=== PATIENT | female | born 1965 | race Hispanic/Latino ===

== ENCOUNTER 2019-07-08 11:06 | Inpatient (IN) | payer OTHER ==
[~2019-07-08] VITALS: Ht 154.9 cm; Wt 78.9 kg
[~2019-07-08 11:06] MED LIST: AMLODIPINE BESY10 MG PO; ASPIR 8181 MG; PEPCID20 MG PO
--- OUTSIDE RECORDS SUMMARY | 2019-07-08 11:09 | XMS REPORT ---
Author Author Tom Mccoy Organization [employer] Address Unknown Phone Unavailable Care Team Providers Care Temperer Name Role Phone Tom Mccoy CP Unavailable Allergies No Known Allergies Problems Problem Type Condition Code Onset Dates Condition Status Problem Urge incontinence N39.41 Active Problem HTN (hypertension) I10 Active Problem Vitamin D deficiency E55.9 Active Assessment Urinary tract infection, site unspecified N39.0 Active Problem HLD (hyperlipidemia) E78.5 Active Problem Hx of breast cancer Z85.3 Active Medications No Known Medications Results No Known Results Summary Purpose [employer] Submission
--- OUTSIDE RECORDS SUMMARY | 2019-07-08 11:09 | XMS REPORT ---
Author Author Tom Mccoy Organization [employer] Address Unknown Phone Unavailable Care Team Providers Care Potable Water Treatment Operator Name Role Phone Tom Mccoy CP Unavailable Allergies No Known Allergies Problems Problem Type Condition Code Onset Dates Condition Status Problem Urge incontinence N39.41 Active Problem HTN (hypertension) I10 Active Problem Vitamin D deficiency E55.9 Active Problem HLD (hyperlipidemia) E78.5 Active Problem Hx of breast cancer Z85.3 Active Medications Medication Code System Code Instructions Start Date End Date Status Dosage Metformin HCl [facility] [address]-01 500 MG Orally Twice a day March 02, 2017 Active 1 tablet with meals Results No Known Results Summary Purpose [employer] Submission
--- OUTSIDE RECORDS SUMMARY | 2019-07-08 11:09 | XMS REPORT ---
Author Author Tom Mccoy Organization [employer] Address Unknown Phone Unavailable Care Team Providers Care Counter Sales Representative Name Role Phone Tom Mccoy CP Unavailable Allergies No Known Allergies Problems Problem Type Condition Code Onset Dates Condition Status Problem Urge incontinence N39.41 Active Problem HTN (hypertension) I10 Active Problem Vitamin D deficiency E55.9 Active Problem HLD (hyperlipidemia) E78.5 Active Problem Hx of breast cancer Z85.3 Active Medications Medication Code System Code Instructions Start Date End Date Status Dosage GlipiZIDE [facility] [address]-91 5 MG Orally twice a day (bid) February 25, 2017 Active 1 tablet Oxybutynin Chloride ER [facility] [address]-74 10 MG Orally Once a day February 25, 2017 Jun 25, 2017 Active 1 tablet Results No Known Results Summary Purpose [employer] Submission
--- OUTSIDE RECORDS SUMMARY | 2019-07-08 11:09 | XMS REPORT ---
Author Author Tom Mccoy Organization [employer] Address Unknown Phone Unavailable Care Team Providers Care Boring Machine Feeder Name Role Phone Tom Mccoy CP Unavailable Allergies, Adverse Reactions, Alerts Substance Reaction Event Type Bactrim Info Not Available Drug Allergy Problems Problem Type Condition Code Onset Dates Condition Status Assessment HTN (hypertension) I10 Active Assessment Vitamin D deficiency E55.9 Active Assessment Familial hypercholesterolemia E78.01 Active Assessment Urge incontinence N39.41 Active Problem Urge incontinence N39.41 Active Problem HTN (hypertension) I10 Active Problem Vitamin D deficiency E55.9 Active Assessment Frequent urination R35.0 Active Assessment Fatigue, unspecified type R53.83 Active Problem HLD (hyperlipidemia) E78.5 Active Problem Hx of breast cancer Z85.3 Active Medications Medication Code System Code Instructions Start Date End Date Status Dosage Amlodipine Besylate [facility] 71613338226 10 Active TAKE 1 TABLET BY MOUTH DAILY Ergocalciferol [facility] [address]-27 97452 UNIT Orally Once a week February 16, 2017 February 11, 2018 Active 1 capsule VESIcare [facility] [address]-24 5 MG Orally Once a day February 16, 2017 April 17, 2017 Active 1 tablet Norvasc [facility] [address]-42 10 MG Orally Once a day Active 1 tablet Zetia [facility] [address]-93 10 MG Orally Once a day February 16, 2017 Active 1 tablet Vital Signs Date/Time: February 16, 2017 BMI 33.66 Index Weight 177 lbs Height 60.8 in Temperature 98.2 F Cardiac Monitoring Heart Rate 84 /min Blood Pressure Diastolic 79 mm Hg Blood Pressure Systolic 141 mm Hg Results No Known Results Summary Purpose [employer] Submission
--- OUTSIDE RECORDS SUMMARY | 2019-07-08 11:09 | XMS REPORT ---
Author Author Azar Santamaria Organization [employer] Address Unknown Phone Unavailable Care Team Providers Care Gasoline Pump Installer Name Role Phone Azar Santamaria CP Unavailable Allergies No Known Allergies Problems Problem Type Condition Code Onset Dates Condition Status Problem Obesity E66.9 Active Problem Low back pain M54.5 Active Problem Hyperlipidemia E78.5 Active Problem Prediabetes R73.09 Active Problem Type 2 diabetes mellitus without complication, unspecified correction insulin use status E11.9 Active Problem Essential hypertension I10 Active Problem History of breast cancer Z85.3 Active Problem Vitamin D deficiency E55.9 Active Problem Surgical menopause N95.8 Active Medications Medication Code System Code Instructions Start Date End Date Status Dosage Amlodipine Besylate [facility] [address]-35 10.0 Milligram by mouth daily Active 1 tablet Results No Known Results Summary Purpose [employer] Submission
--- OUTSIDE RECORDS SUMMARY | 2019-07-08 11:09 | XMS REPORT ---
Author Author Tom Mccoy Organization [employer] Address Unknown Phone Unavailable Care Team Providers Care Group Therapy Counselor Name Role Phone Tom Mccoy CP Unavailable Allergies No Known Allergies Problems Problem Type Condition Code Onset Dates Condition Status Problem Urge incontinence N39.41 Active Problem HTN (hypertension) I10 Active Problem Vitamin D deficiency E55.9 Active Problem HLD (hyperlipidemia) E78.5 Active Problem Hx of breast cancer Z85.3 Active Medications Medication Code System Code Instructions Start Date End Date Status Dosage Oxybutynin Chloride ER [facility] [address]-67 10 MG Orally Once a day February 25, 2017 Jun 25, 2017 Active 1 tablet GlipiZIDE [facility] [address]-72 5 MG Orally twice a day (bid) February 25, 2017 Active 1 tablet Results No Known Results Summary Purpose [employer] Submission
--- OUTSIDE RECORDS SUMMARY | 2019-07-08 11:09 | XMS REPORT ---
Author Author Tom Mccoy Organization [employer] Address Unknown Phone Unavailable Care Team Providers Care Conveyor Maintenance Mechanic Name Role Phone Tom Mccoy CP Unavailable Encounters Encounter Location Date Unknown [facility] Sep 10, 2016 Problems Problem Type Condition ICD-9 Code Onset Dates Condition Status Problem HLD (hyperlipidemia) E78.5 Active Problem Hx of breast cancer Z85.3 Active Problem HTN (hypertension) I10 Active Medications Medication Code System Code Instructions Start Date End Date Status Dosage Ergocalciferol [facility] [address]-75 49352 UNIT Orally Once a week Sep 10, 2016 Oct 04, 2016 Active 1 capsule Co Q-10 [facility] 37348-[address]25 100 MG Orally Once a day Sep 10, 2016 Dec 09, 2016 Active 1 capsule with a meal Social History Social History Element Qualifiers Date Reported Tobacco Use: . Are you a: never smoker Jun 23, 2016 Use of recreational / street drugs? . Answer: No Jun 23, 2016 Marital Status: . Jun 23, 2016 Caffeine intake? . Status: Yes, What type: Coffee, Chocolate Jun 23, 2016 Do you exercise? . Answer: No Jun 23, 2016 Do you drink alcohol? . Status: Yes, Type: Liquor, How Often? Socially Jun 23, 2016 Travel outside [place]: . yes Jun 23, 2016 Occupation: . Employed. [employer] Jun 23, 2016 Summary Purpose [employer] Submission
--- OUTSIDE RECORDS SUMMARY | 2019-07-08 11:09 | XMS REPORT ---
Author Author Tom Mccoy Organization [employer] Address Unknown Phone Unavailable Care Team Providers Care Instantizer Operator Name Role Phone Tom Mccoy CP [...]
--- OUTSIDE RECORDS SUMMARY | 2019-07-08 11:09 | XMS REPORT | Continuity of Care Document ---
Author Author Klash Address Unknown Phone Unavailable Care Team Providers Care Informatica Mdm Architect Name Role Phone [email or web address] Information Exchange Unavailable Unavailable Problems Problem Status Onset Date Classification Date Reported Comments Source Urge incontinence Active Diagnosis 03/18/2017 [id number] HTN (hypertension) Active Diagnosis 03/18/2017 [id number] HLD (hyperlipidemia) Active Problem 03/18/2017 [id number] Hx of breast cancer Active Problem 03/18/2017 [id number] Urinary tract infection, site unspecified Active Diagnosis 03/03/2017 [id number] Frequent urination Active Diagnosis 03/18/2017 [id number] Fatigue, unspecified type Active Diagnosis 03/18/2017 [id number] Obesity Active Problem 02/16/2019 [facility] Low back pain Active Problem 02/16/2019 [facility] Hyperlipidemia Active Problem 02/16/2019 [facility] Prediabetes Active Problem 09/02/2018 [facility] Type 2 diabetes mellitus without complication, unspecified 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 insulin 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 Active Problem 02/16/2019 [facility] Essential hypertension Active Problem 02/16/2019 [facility] History of breast cancer Active Problem 02/16/2019 [facility] Vitamin D deficiency Active Diagnosis 02/16/2019 [facility],[id number] Surgical menopause Active Problem 02/16/2019 [facility] Cough Active Diagnosis 03/30/2017 [facility] Dysuria Active Diagnosis 03/30/2017 [facility] Pain of left calf Active Diagnosis 04/21/2017 [facility] Flu-like symptoms Active Diagnosis 09/07/2017 [facility] Acute cystitis with hematuria Active Diagnosis 02/09/2018 [facility] Morbid obesity Active Problem 02/16/2019 [facility] Gastroesophageal reflux disease without esophagitis Active Problem 02/16/2019 [facility] Encounter for routine history and physical examination of adult Active Diagnosis 02/16/2019 [facility] Statin intolerance Active Problem 02/16/2019 [facility] Intractable migraine with aura with status migrainosus Active Problem 02/16/2019 [facility] Family history of premature CAD Active Problem 02/16/2019 [facility] Type 2 diabetes mellitus without complication, without long-term current use of insulin Active Problem 02/16/2019 [facility] Familial hypercholesterolemia Active Problem 02/16/2019 [facility],[id number] Anxiety Active Problem 02/16/2019 [facility] Peripheral vascular disease, unspecified Active Problem 02/16/2019 [facility] Skin rash Active Diagnosis 02/16/2019 [facility] Elevated LFTs Active Diagnosis 12/12/2018 [facility] UTI (lower urinary tract infection) Active Diagnosis 08/28/2018 [facility] Routine general medical examination at a health care facility Active Diagnosis 08/28/2018 [facility] Myalgia Active Diagnosis 11/23/2018 [facility] LFT elevation Active Diagnosis 11/23/2018 [facility] Other chest pain Active Diagnosis 11/23/2018 [facility] Obesity Active Diagnosis 05/01/2014 [facility] Hypertension Active Problem 05/01/2014 [facility] History of breast cancer Active Problem 05/01/2014 [facility] Impaired fasting glucose Active Problem 05/01/2014 [facility] Elevated liver enzymes Active Diagnosis 05/01/2014 [facility] Arm numbness Active Diagnosis 05/01/2014 [facility] Chest discomfort Active Diagnosis 05/01/2014 [facility] Cough Active Diagnosis 07/14/2013 [facility] Elevated liver enzymes Active Diagnosis 07/14/2013 [facility] Chest discomfort Active Diagnosis 12/22/2018 [facility] Chest pain Active Diagnosis 03/10/2016 [facility] Fatigue Active Diagnosis 02/17/2016 [facility] History of strep sore throat Active Diagnosis 02/17/2016 [facility] Medications Medication Details Route Status Patient Instructions Ordering Provider Order Date Source Triamcinolone Acetonide 1 application to affected area Externally Active 0.1 % Externally Twice a day [facility] 01/29/2019 [facility] Farxiga one tablet by mouth Active 5 mg by mouth daily [facility] 01/29/2019 [facility] FreeStyle Aldo [place] as directed in vitro Active - in vitro use qd, DX: E11.9 [facility] 12/11/2018 [facility] FreeStyle Aldo 14 day Sensor System as directed in vitro (DX: 11.9) Active sensor in vitro (DX: 11.9) use daily change sensor every 14 days [facility] 12/11/2018 [facility] Glyxambi 1 tablet in the morning Orally Active 25-5 MG Orally Once a day [facility] 12/07/2018 [facility] Citalopram Hydrobromide 1 tablet Orally Active 10 mg Orally Once a day [facility] 10/31/2018 [facility] Repatha SureClick 1 ml Subcutaneous Active 140 MG/ML Subcutaneous every 2 weeks [facility] 10/31/2018 [facility] Metformin HCl 1 tablet with a meal Orally Active 500 mg Orally twice a day (bid) [facility] 09/01/2018 [facility] Ergocalciferol 1 capsule Orally Active 98959 UNIT Orally once per week [facility] 09/01/2018 [facility] Cipro 1 tablet Orally Active 500 mg Orally twice a day (bid) [place] 02/07/2018 [facility] Nexium 1 capsule Orally Active 40 MG Orally Once a day [facility] 10/01/2017 [facility] Magnesium 1 tablet with a meal Orally Active 250 MG Orally Once a day [place] 10/01/2017 [facility] Hydrochlorothiazide 1 tablet in the morning Orally Active 12.5 MG Orally pm [place] 10/01/2017 [facility] K-Tab 1 tablet with food Orally Active 20 MEQ Orally Once a day [place] 10/01/2017 [facility] Aspirin 1 tablet Orally Active 81 MG Orally Once a day [place] 10/01/2017 [facility] Aspirin 1 tablet Orally Active 81 MG Orally Every other day [facility] 10/01/2017 [facility] Aspirin 1 tablet Orally Active 81 MG Orally Every other day [facility] 10/01/2017 [facility] Tamiflu 1 capsule Orally Active 75 mg Orally Twice a day [place] 09/06/2017 [facility] Bromfed DM 10 ml as needed Orally Active 30-2-10 MG/5ML Orally every 6 hrs PRN [place] 09/06/2017 [facility] Amoxicillin 1 tablet Orally Active 500 MG Orally every 12 hrs [facility] 03/28/2017 [facility] Metformin HCl 1 tablet with meals Orally Active 500 MG Orally Twice a day [facility] 03/02/2017 2.16.840.1.686969.4.391.11.88631 Oxybutynin Chloride ER 1 tablet Orally Active 10 MG Orally Once a day [facility] 02/25/2017 2.16.840.1.177129.4.391.11.07246 GlipiZIDE 1 tablet Orally Active 5 MG Orally twice a day (bid) [facility] 02/25/2017 2.16.840.1.683832.4.391.11.63969 Ergocalciferol 1 capsule Orally Active 24481 UNIT Orally Once a week [facility] 02/16/2017 2.16.840.1.523910.4.391.11.46106 VESIcare 1 tablet Orally Active 5 MG Orally Once a day [facility] 02/16/2017 2.16840.1.761191.4.391..30270 Zetia 1 tablet Orally Active 10 MG Orally Once a day [facility] 02/16/2017 2.16.840.1.414795.4.391..02904 Ergocalciferol 1 capsule Orally Active 45125 UNIT Orally Once a week [facility] 09/10/2016 2.16.840.1.466132.4.391..21683 Co Q-10 1 capsule with a meal Orally Active 100 MG Orally Once a day [facility] 09/10/2016 2.16.840.1.268458.4.391..05806 Amoxicillin 1 tablet Orally Active 500 mg Orally three times a day (tid) [facility] 03/03/2016 [facility] MetFORMIN HCl ER 1 tablet with evening meal Orally Active 750 MG Orally Once a day [place] 02/13/2016 [facility] Pravastatin Sodium 1 tablet Orally Active 40 mg Orally Once a day [facility] 02/13/2016 [facility] Vitamin D (Ergocalciferol) 1 capsule Orally Active 66527 UNIT Orally once per week [place] 02/13/2016 [facility] Ergocalciferol 1 capsule Orally Active 28450 UNIT Orally once per week [place] 10/09/2015 [facility] Imitrex 1 tablet as needed one time; can repeat in 2 hrs if headache persists Orally Active 50 mg Orally Once a day [place] 01/24/2015 [facility] Imitrex 1 tablet as needed one time; can repeat in 2 hrs if headache persists Orally Active 50 mg Orally Once a day [place] 01/24/2015 [facility] Tessalon 1 capsule as needed Orally Active 200 MG Orally Three times a day PRN [place] 07/10/2013 [facility] Amlodipine Besylate TAKE 1 TABLET BY MOUTH DAILY NA Active 10 [place] [id number] Norvasc 1 tablet Orally Active 10 MG Orally Once a day [facility] [id number]..11585 Amlodipine Besylate 1 tablet by mouth Active 10.0 Milligram by mouth daily [place] [facility] Tamoxifen Citrate 1 tablet Orally Active 20 mg Orally once a day [facility] Vitamin D (Ergocalciferol) 1 capsule Orally Active 03909 UNIT Orally once a week [facility] Vitamin D (Ergocalciferol) 1 capsule Orally Active 48667 UNIT Orally once a week [place] [facility] Amlodipine Besylate 1 tablet by mouth Active 10.0 Milligram by mouth daily [place] [facility] Valsartan-Hydrochlorothiazide TK 1 T PO QD Oral Active 160-12.5 MG Oral [place] [facility] Cipro 1 tablet Orally Active 500 mg Orally every 12 hrs [place] [facility] Amoxicillin 1 tablet Orally Active 875 MG Orally Twice a day [place] [facility] Amlodipine Besylate 1 tablet by mouth Active 10.0 Milligram by mouth daily [place] [facility] Doxycycline Monohydrate 1 capsule Orally Active 100 mg Orally Once a day [place] [facility] Allergies, Adverse Reactions, Alerts Substance Category Reaction Severity Reaction type Status Date Reported Comments Source Bactrim Adverse Reaction hives Adverse Reaction Active 01/29/2019 [facility] Lipitor Adverse Reaction muscle aches Adverse Reaction Active 01/29/2019 [facility] pravastatin Adverse Reaction dizziness and leg cramps Adverse Reaction Active 01/29/2019 [facility] metformin Adverse Reaction leg cramps Adverse Reaction Active 01/29/2019 [facility] Immunizations No Data Provided for This Section Results No Data Provided for This Section Pathology Reports No Data Provided for This Section Diagnostic Reports No Data Provided for This Section Consultation Notes No Data Provided for This Section Discharge Summaries No Data Provided for This Section History and Physicals No Data Provided for This Section Vital Signs Vital Sign Value Date Comments Source Weight 174 01/29/2019 [facility] Height 60.5 01/29/2019 [facility] Heart Rate 76 01/29/2019 [facility] Diastolic (mm Hg) 90 01/29/2019 [facility] Systolic (mm Hg) 130 01/29/2019 [facility] Weight 171 12/07/2018 [facility] Height 60.5 12/07/2018 [facility] Heart Rate 80 12/07/2018 [facility] Diastolic (mm Hg) 78 12/07/2018 [facility] Systolic (mm Hg) 132 12/07/2018 [facility] Weight 169 10/31/2018 [facility] Height 60.5 10/31/2018 [facility] Heart Rate 76 10/31/2018 [facility] Diastolic (mm Hg) 82 10/31/2018 [facility] Systolic (mm Hg) 128 10/31/2018 [facility] Weight 177 08/26/2018 [facility] Height 60.5 08/26/2018 [facility] Temperature Oral (F) 98.3 F 08/26/2018 [facility] Heart Rate 82 08/26/2018 [facility] Diastolic (mm Hg) 80 08/26/2018 [facility] Systolic (mm Hg) 130 08/26/2018 [facility] Weight 172 02/07/2018 [facility] Height 60.5 02/07/2018 [facility] Heart Rate 85 02/07/2018 [facility] Diastolic (mm Hg) 80 02/07/2018 [facility] Systolic (mm Hg) 130 02/07/2018 [facility] Weight 170 09/06/2017 [facility] Height 60.5 09/06/2017 [facility] Temperature Oral (F) 98.0 F 09/06/2017 [facility] Heart Rate 78 09/06/2017 [facility] Diastolic (mm Hg) 74 09/06/2017 [facility] Systolic (mm Hg) 130 09/06/2017 [facility] Weight 173 03/28/2017 [facility] Height 60.5 03/28/2017 [facility] Heart Rate 88 03/28/2017 [facility] Diastolic (mm Hg) 84 03/28/2017 [facility] Systolic (mm Hg) 150 03/28/2017 [facility] Weight 177 02/16/2017 2.16.840.1.493433.4.391.11.25015 Height 60.8 02/16/2017 2.16.840.1.724978.4.391.11.16791 Temperature Oral (F) 98.2 F 02/16/2017 2.16.840.1.351129.4.391.11.11898 Heart Rate 84 02/16/2017 2.16.840.1.943537.4.391.11.61169 Diastolic (mm Hg) 79 02/16/2017 2.16.840.1.520871.4.391.11.78790 Systolic (mm Hg) 141 02/16/2017 2.16.840.1.847218.4.391.11.12833 Weight 169 02/13/2016 [facility] Height 60.5 02/13/2016 [facility] Heart Rate 80 02/13/2016 [facility] Diastolic (mm Hg) 70 02/13/2016 [facility] Systolic (mm Hg) 118 02/13/2016 [facility] Weight 171 04/17/2014 [facility] Height 60.5 04/17/2014 [facility] Temperature Oral (F) 98.8 F 04/17/2014 [facility] Heart Rate 76 04/17/2014 [facility] Diastolic (mm Hg) 90 04/17/2014 [facility] Systolic (mm Hg) 140 04/17/2014 [facility] Weight 166 07/10/2013 [facility] Height 60.5 07/10/2013 [facility] Heart Rate 96 07/10/2013 [facility] Diastolic (mm Hg) 96 07/10/2013 [facility] Systolic (mm Hg) 148 07/10/2013 [facility] Encounters Location Location Details Encounter Type Encounter Number Reason For Visit Attending Provider ADM Date DC Date Status Source [facility] RESULTS [id number] 07/10/2013 07/10/2013 [facility] RESULTS [id number] 07/10/2013 07/10/2013 [facility] RESULTS [id number] 07/10/2013 07/10/2013 [facility] RESULTS [id number] 07/10/2013 07/10/2013 [facility] RESULTS [id number] 07/10/2013 07/10/2013 [facility] RESULTS [id number] 07/10/2013 07/10/2013 [facility] RESULTS [id number] 07/10/2013 07/10/2013 [facility] RESULTS [id number] 07/10/2013 07/10/2013 [facility] pain on rt side [id number] 04/17/2014 04/17/2014 [facility] pain on rt side [id number] 04/17/2014 04/17/2014 [facility] pain on rt side [id number] 04/17/2014 04/17/2014 [facility] pain on rt side [id number] 04/17/2014 04/17/2014 [facility] pain on rt side [id number] 04/17/2014 04/17/2014 [facility] pain on rt side [id number] 04/17/2014 04/17/2014 [facility] pain on rt side [id number] 04/17/2014 04/17/2014 [facility] [id number] 04/19/2014 04/19/2014 [facility] [id number] 04/19/2014 04/19/2014 [facility] [id number] 04/19/2014 04/19/2014 [facility] [id number] 04/19/2014 04/19/2014 [facility] [id number] 04/19/2014 04/19/2014 [facility] [id number] 04/19/2014 04/19/2014 [facility] [id number] 04/19/2014 04/19/2014 [facility] ER FOLLOW UP [id number] 01/24/2015 01/24/2015 [facility] ER FOLLOW UP [id number] 01/24/2015 01/24/2015 [facility] ER FOLLOW UP [id number] 01/24/2015 01/24/2015 [facility] ER FOLLOW UP [id number] 01/24/2015 01/24/2015 [facility] ER FOLLOW UP [id number] 01/24/2015 01/24/2015 [facility] PHYSICAL [id number] 09/05/2015 09/05/2015 [facility] PHYSICAL [id number] 09/05/2015 09/05/2015 [facility] PHYSICAL [id number] 09/05/2015 09/05/2015 [facility] [facility] PHYSICAL [id number] 09/05/2015 09/05/2015 [facility] PHYSICAL [id number] 09/05/2015 09/05/2015 [facility] Unknown [id number] 10/09/2015 10/09/2015 [facility] Unknown [id number] 10/09/2015 10/09/2015 [facility] Unknown [id number] 10/09/2015 10/09/2015 [facility] Unknown [id number] 10/09/2015 10/09/2015 [facility] Unknown [id number] 10/09/2015 10/09/2015 [facility] 6 MONTH FOLLOW UP [id number] 02/13/2016 02/13/2016 [facility] 6 MONTH FOLLOW UP [id number] 02/13/2016 02/13/2016 [facility] 6 MONTH FOLLOW UP [id number] 02/13/2016 02/13/2016 [facility] 6 MONTH FOLLOW UP [id number] 02/13/2016 02/13/2016 [facility] Unknown [id number] 03/03/2016 03/03/2016 [facility] Unknown [id number] 03/03/2016 03/03/2016 [facility] [place] [id number] 03/05/2016 03/05/2016 [facility] [place] [id number] 03/05/2016 03/05/2016 [facility] [place] [id number] 03/05/2016 03/05/2016 [facility] Results [id number] 04/28/2016 04/28/2016 [facility] [id number] 09/10/2016 09/10/2016 [id number] Procedures No Data Provided for This Section Assessment and Plan No Data Provided for This Section Plan of Care No Data Provided for This Section Social History Social History Date Source Social History ElementQualifiersDate Reported Tobacco Use: . 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 negative February 13, 2016 Flu Vaccine: . 2015 February 13, 2016 children . Judah and Velma February 13, 2016 Tobacco Use: . Are you a: never smoker February 13, 2016 Marital Status: . Thiago Dietz February 13, 2016 Caffeine intake? . Status: Yes February 13, 2016 Do you exercise? . Answer: Yes February 13, 2016 Do you drink alcohol? . Status: Yes, Type: Rarely February 13, 2016 Occupation: employed. [employer] [place] [employer] February 13, 2016 02/13/2016 [facility] Family History Value Date Source QualifierDescriptionCommentDate Reported Father alive heart disease Jul 10, 2013 Mother alive hypertension, diabetes Jul 10, 2013 Paternal Grandmother alzheimer's dementia, diabetes Jul 10, 2013 07/14/2013 [facility] Advance Directives No Data Provided for This Section Functional Status No Data Provided for This Section
--- OUTSIDE RECORDS SUMMARY | 2019-07-08 11:09 | XMS REPORT ---
Author Author Azar Santamaria Organization e[employer] Address Unknown Phone Unavailable Care Team Providers Care Head Of Sales Promotion Name Role Phone Azar Santamaria CP Unavailable Allergies, Adverse Reactions, Alerts Substance Reaction Event Type Lipitor muscle aches Drug Allergy Bactrim hives Drug Allergy pravastatin dizziness and leg cramps Non Drug Allergy metformin leg cramps Non Drug Allergy Problems Problem Type Condition Code Onset Dates Condition Status Assessment Essential hypertension I10 Active Problem Obesity E66.9 Active Problem Low back pain M54.5 Active Problem Hyperlipidemia E78.5 Active Problem Prediabetes R73.09 Active Problem Type 2 diabetes mellitus without complication, unspecified adjunct faculty for medical terminology insulin use status E11.9 Active Problem Essential hypertension I10 Active Problem History of breast cancer Z85.3 Active Problem Vitamin D deficiency E55.9 Active Problem Surgical menopause N95.8 Active Assessment Cough R05 Active Assessment Dysuria R30.0 Active Assessment Pain of left calf M79.662 Active Assessment Vitamin D deficiency E55.9 Active Assessment Type 2 diabetes mellitus without complication, unspecified snf insulin use status E11.9 Active Assessment Prediabetes R73.09 Active Medications Medication Code System Code Instructions Start Date End Date Status Dosage MetFORMIN HCl ER [facility] [address]-93 750 MG Orally Once a day February 13, 2016 Active 1 tablet with evening meal Pravastatin Sodium [facility] [address]-39 40 mg Orally Once a day February 13, 2016 Active 1 tablet Imitrex [facility] [address]-98 50 mg Orally Once a day January 24, 2015 Active 1 tablet as needed one time; can repeat in 2 hrs if headache persists Amoxicillin [facility] [address]-60 500 MG Orally every 12 hrs March 28, 2017 April 07, 2017 Active 1 tablet Tamoxifen Citrate [facility] [address]-18 20 mg Orally once a day Active 1 tablet Vitamin D (Ergocalciferol) [facility] [address]-25 73352 UNIT Orally once a week Active 1 capsule Amlodipine Besylate [facility] [address]-47 10.0 Milligram by mouth daily Active 1 tablet Vital Signs Date/Time: March 28, 2017 BMI 33.23 Index Weight 173 lbs Height 60.5 in Cardiac Monitoring Heart Rate 88 /min Blood Pressure Diastolic 84 mm Hg Blood Pressure Systolic 150 mm Hg Results Name Result Date Reference Range Unit Abnormality Flag URINE AUTO W/O SCOPE ----Spec Lynndyl 1.020 20170328 ----Turbidity CLOUDY 20170328 ----Glucose NEG 20170328 ----Ketones NEG 20170328 ----Blood MOD 20170328 ----Bili NEG 20170328 ----Color DARK YELLOW 20170328 ----pH 5.0 20170328 ----Leuk Est MOD ++ 20170328 ----Nitrite NEG 20170328 ----Urobilinogen 0.2 20170328 ----Protein NEG 20170328 Summary Purpose eClinicalWorks Submission
--- OUTSIDE RECORDS SUMMARY | 2019-07-08 11:10 | XMS REPORT ---
Author Author Azar Santamaria Organization [employer] Address Unknown Phone Unavailable Care Team Providers Care Skin Carver Name Role Phone Azar Santamaria CP Unavailable Allergies No Known Allergies Problems Problem Type Condition Code Onset Dates Condition Status Assessment Pain of left calf M79.662 Active Problem Obesity E66.9 Active Problem Low back pain M54.5 Active Problem Hyperlipidemia E78.5 Active Problem Prediabetes R73.09 Active Problem Type 2 diabetes mellitus without complication, unspecified group home insulin use status E11.9 Active Problem Essential hypertension I10 Active Problem History of breast cancer Z85.3 Active Problem Vitamin D deficiency E55.9 Active Problem Surgical menopause N95.8 Active Medications No Known Medications Results No Known Results Summary Purpose eClinicalWorks Submission
--- OUTSIDE RECORDS SUMMARY | 2019-07-08 11:10 | XMS REPORT ---
Author Author Abbey Clark Organization [employer] Address Unknown Phone Unavailable Care Team Providers Care Field Operations Coordinator Name Role Phone Abbey Clark CP Unavailable Allergies No Known Allergies Problems Problem Type Condition Code Onset Dates Condition Status Problem Hyperlipidemia E78.5 Active Problem Morbid obesity E66.01 Active Problem Type 2 diabetes mellitus without complication, unspecified manager terminal insulin use status E11.9 Active Problem Gastroesophageal reflux disease without esophagitis K21.9 Active Problem Statin intolerance Z78.9 Active Problem Intractable migraine with aura with status migrainosus G43.111 Active Problem Family history of premature CAD Z82.49 Active Problem Type 2 diabetes mellitus without complication, without long-term current use of insulin E11.9 Active Problem Familial hypercholesterolemia E78.01 Active Problem Anxiety F41.9 Active Problem Peripheral vascular disease, unspecified I73.9 Active Assessment Elevated LFTs R94.5 Active Problem History of breast cancer Z85.3 Active Problem Obesity E66.9 Active Problem Low back pain M54.5 Active Problem Surgical menopause N95.8 Active Problem Essential hypertension I10 Active Problem Vitamin D deficiency E55.9 Active Medications Medication Code System Code Instructions Start Date End Date Status Dosage FreeStyle Aldo [place] NDC 66226654068 - in vitro use qd, DX: E11.9 Dec 11, 2018 Active as directed FreeStyle Aldo 14 day Sensor System NDC 0 sensor in vitro (DX: 11.9) use daily change sensor every 14 days Dec 11, 2018 Active as directed Results No Known Results Summary Purpose eClinicalWorks Submission
--- OUTSIDE RECORDS SUMMARY | 2019-07-08 11:10 | XMS REPORT ---
Author Author Moon Chen [facility] eClinicalWorks Address Unknown Phone Unavailable Care Team Providers Care Parts Processor Name Role Phone Moon Chen Unavailable Encounters Encounter Location Date RESULTS [facility] Jul 10, 2013 pain on rt side [facility] April 17, 2014 [place] April 19, 2014 Problems Problem Type Condition ICD-9 Code Onset Dates Condition Status Assessment Obesity 278.00 Active Problem Hypertension 401.9 Active Problem History of breast cancer V10.3 Active Problem Impaired fasting glucose 790.21 Active Assessment Elevated liver enzymes 790.5 Active Assessment Hypertension 401.9 Active Problem Obesity 278.00 Active Problem Elevated liver enzymes 790.5 Active Social History Social History Element Qualifiers Date Reported Depression Screening: . 03/2014April 17, 2014 Flu Vaccine: . no April 17, 2014 children . Judah and Velma April 17, 2014 Tobacco Use: . Are you a: never smoker April 17, 2014 Marital Status: . Thiago Dietz April 17, 2014 Do you drink alcohol? . 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
--- OUTSIDE RECORDS SUMMARY | 2019-07-08 11:10 | XMS REPORT ---
Author Author Marilia Lee [facility] eClinicalWorks Address Unknown Phone Unavailable Care Team Providers Care Speed Operator Name Role Phone Marilia Lee CP Unavailable Allergies, Adverse Reactions, Alerts Substance Reaction Event Type Lipitor muscle aches Drug Allergy Bactrim hives Drug Allergy pravastatin dizziness and leg cramps Non Drug Allergy metformin leg cramps Non Drug Allergy Problems Problem Type Condition Code Onset Dates Condition Status Problem Hyperlipidemia E78.5 Active Problem Morbid obesity E66.01 Active Problem Type 2 diabetes mellitus without complication, unspecified [facility] insulin use status E11.9 Active Problem Gastroesophageal reflux disease without esophagitis K21.9 Active Assessment Encounter for routine history and physical examination of adult Z00.00 Active Problem Statin intolerance Z78.9 Active Assessment Vitamin D deficiency E55.9 Active Problem Intractable migraine with aura with status migrainosus G43.111 Active Problem Family history of premature CAD Z82.49 Active Problem Type 2 diabetes mellitus without complication, without long-term current use of insulin E11.9 Active Problem Familial hypercholesterolemia E78.01 Active Problem Anxiety F41.9 Active Problem Peripheral vascular disease, unspecified I73.9 Active Assessment Skin rash R21 Active Assessment Type 2 diabetes mellitus without complication, unspecified [facility]iary insulin use status E11.9 Active Problem History of breast cancer Z85.3 Active Problem Obesity E66.9 Active Problem Low back pain M54.5 Active Problem Surgical menopause N95.8 Active Problem Essential hypertension I10 Active Problem Vitamin D deficiency E55.9 Active Medications Medication Code System Code Instructions Start Date End Date Status Dosage Aspirin [facility] 97645521057 81 MG Orally Every other day Oct 01, 2017 Active 1 tablet Metformin HCl [facility] 58994395312 500 mg Orally twice a day (bid) Sep 01, 2018 Active 1 tablet with a meal Citalopram Hydrobromide ND 80959686690 10 mg Orally Once a day Oct 31, 2018 Active 1 tablet Triamcinolone Acetonide [facility] 21417666155 0.1 % Externally Twice a day January 29, 2019 Active 1 application to affected area Ergocalciferol [facility] 23765354444 42326 UNIT Orally once per week Sep 01, 2018 February 16, 2019 Active 1 capsule Repatha SureClick [facility] 79404882859 140 MG/ML Subcutaneous every 2 weeks Oct 31, 2018 May 29, 2019 Active 1 ml Imitrex [facility] 87206479725 50 mg Orally Once a day January 24, 2015 Active 1 tablet as needed one time; can repeat in 2 hrs if headache persists Farxiga ND 0 5 mg by mouth daily January 29, 2019 Active one tablet Valsartan-Hydrochlorothiazide [facility] 84424791266 160-12.5 MG Oral Active TK 1 T PO QD Vital Signs Date/Time: January 29, 2019 BMI 33.42 Index Weight 174 lbs Height 60.5 in Cardiac Monitoring Heart Rate 76 /min Blood Pressure Diastolic 90 mm Hg Blood Pressure Systolic 130 mm Hg Results No Known Results Summary Purpose eClinicalWorks Submission
--- OUTSIDE RECORDS SUMMARY | 2019-07-08 11:10 | XMS REPORT ---
Author Author Marilia Lee [facility] eClinicalWorks Address Unknown Phone Unavailable Care Team Providers Care Assemblies And Installations Inspector Name Role Phone Marilia Lee CP Unavailable [...] unspecified snf insulin use status E11.9 Active Problem Gastroesophageal reflux disease without esophagitis K21.9 Active Assessment Type 2 diabetes mellitus without complication, unspecified snf insulin use status E11.9 Active Problem Statin intolerance Z78.9 Active Assessment Gastroesophageal reflux disease without esophagitis K21.9 Active Problem Intractable migraine with aura with status migrainosus G43.111 Active Problem Family history of premature CAD Z82.49 Active Problem Type 2 diabetes mellitus without complication, without long-term current use of insulin E11.9 Active Problem Familial hypercholesterolemia E78.01 Active Problem Anxiety F41.9 Active Problem Peripheral vascular disease, unspecified I73.9 Active Assessment Intractable migraine with aura with status migrainosus G43.111 Active Assessment Chest discomfort R07.89 Active Problem History of breast cancer Z85.3 Active Problem Obesity E66.9 Active Problem Low back pain M54.5 Active Problem Surgical menopause N95.8 Active Problem Essential hypertension I10 Active Problem Vitamin D deficiency E55.9 Active Medications Medication Code System Code Instructions Start Date End Date Status Dosage Imitrex [facility] 18379743297 50 mg Orally Once a day January 24, 2015 Active 1 tablet as needed one time; can repeat in 2 hrs if headache persists Aspirin [facility] [address]-10 81 MG Orally Every other day Oct 01, 2017 Active 1 tablet Repatha SureClick [facility] 77590565357 140 MG/ML Subcutaneous every 2 weeks Oct 31, 2018 May 29, 2019 Active 1 ml Imitrex [facility] 72621596286 50 mg Orally Once a day January 24, 2015 Active 1 tablet as needed one time; can repeat in 2 hrs if headache persists Valsartan-Hydrochlorothiazide [facility] 62095074266 160-12.5 MG Oral Active TK 1 T PO QD Glyxambi [facility] 19157420765 25-5 MG Orally Once a day Dec 07, 2018 Jan 06, 2019 Active 1 tablet in the morning Citalopram Hydrobromide [facility] 04876671563 10 mg Orally Once a day Oct 31, 2018 Active 1 tablet Metformin HCl [facility] 51491715508 500 mg Orally twice a day (bid) Sep 01, 2018 Active 1 tablet with a meal Ergocalciferol [facility] 71043545463 42563 UNIT Orally once per week Sep 01, 2018 February 16, 2019 Active 1 capsule Vital Signs Date/Time: Dec 07, 2018 BMI 32.84 Index Weight 171 lbs Height 60.5 in Cardiac Monitoring Heart Rate 80 /min Blood Pressure Diastolic 78 mm Hg Blood Pressure Systolic 132 mm Hg Results No Known Results Summary Purpose eClinicalWorks Submission
--- OUTSIDE RECORDS SUMMARY | 2019-07-08 11:10 | XMS REPORT ---
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.9 Active Problem Type 2 diabetes mellitus without complication, without long-term current use of insulin E11.9 Active Problem Obesity E66.9 Active Problem Prediabetes R73.09 Active Problem Hyperlipidemia E78.5 Active Problem Vitamin D deficiency E55.9 Active Assessment Vitamin D deficiency E55.9 Active Assessment Type 2 diabetes mellitus without complication, without long-term current use of insulin E11.9 Active Problem Low back pain M54.5 Active Medications Medication Code System Code Instructions Start Date End Date Status Dosage Ergocalciferol [facility] 18057993438 74311 UNIT Orally once per week Sep 01, 2018 February 16, 2019 Active 1 capsule Metformin HCl [facility] 77354654909 500 mg Orally twice a day (bid) Sep 01, 2018 Active 1 tablet with a meal Imitrex [facility] 78808315831 50 mg Orally Once a day January 24, 2015 Active 1 tablet as needed one time; can repeat in 2 hrs if headache persists Aspirin [facility] 90423205839 81 MG Orally Once a day Oct 01, 2017 Active 1 tablet Valsartan-Hydrochlorothiazide [facility] 49298243198 160-12.5 MG Oral Active TK 1 T PO QD Results No Known Results Summary Purpose eClinicalWorks Submission
--- OUTSIDE RECORDS SUMMARY | 2019-07-08 11:10 | XMS REPORT ---
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
--- OUTSIDE RECORDS SUMMARY | 2019-07-08 11:10 | XMS REPORT ---
Author Author Moon Chen [facility] eClinicalWorks Address Unknown Phone Unavailable Care Team Providers Care Imaging Engineer Name Role Phone Moon Chen CP Unavailable Allergies, Adverse Reactions, Alerts Substance Reaction Event Type Lipitor muscle aches Drug Allergy Bactrim hives Drug Allergy Encounters Encounter Location Date RESULTS [facility] Jul 10, 2013 pain on rt side [facility] April 17, 2014 [place] April 19, 2014 Problems Problem Type Condition ICD-9 Code Onset Dates Condition Status Assessment Arm numbness 782.0 Active Problem Hypertension 401.9 Active Problem History of breast cancer V10.3 Active Problem Impaired fasting glucose 790.21 Active Assessment Hypertension 401.9 Active Assessment Chest discomfort 786.59 Active Problem Obesity 278.00 Active Problem Elevated liver enzymes 790.5 Active Medications Medication Code System Code Instructions Start Date End Date Status Dosage Cipro [facility] [address]-53 500 mg Orally every 12 hrs Active 1 tablet [facility] [address]-21 875 MG Orally Twice a day Active 1 tablet Amlodipine Besylate [facility] [address]-63 10.0 Milligram by mouth daily Active 1 tablet Tamoxifen Citrate [facility] [address]-17 20 MG Orally Once a day Active 1 tablet Doxycycline Monohydrate [facility] [address]-23 100 mg Orally Once a day Active 1 capsule Social History Social History Element Qualifiers Date [...] 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
--- OUTSIDE RECORDS SUMMARY | 2019-07-08 11:10 | XMS REPORT ---
Author Author Azar Santamaria Organization eClinicalWorks Address Unknown Phone Unavailable Care Team Providers Care Supervisor Plastics Name Role Phone Azar Santamaria CP Unavailable Allergies No Known Allergies Problems Problem Type Condition Code Onset Dates Condition Status Problem Surgical menopause N95.8 Active Problem Hyperlipidemia E78.5 Active Problem Vitamin D deficiency E55.9 Active Problem Family history of premature CAD Z82.49 Active Problem Statin intolerance Z78.9 Active Problem Anxiety F41.9 Active Problem Morbid obesity E66.01 Active Problem Type 2 diabetes mellitus without complication, unspecified detention insulin use status E11.9 Active Problem Familial hypercholesterolemia E78.01 Active Problem Type 2 diabetes mellitus without complication, without long-term current use of insulin E11.9 Active Assessment Elevated LFTs R94.5 Active Problem Low back pain M54.5 Active Problem Essential hypertension I10 Active Problem History of breast cancer Z85.3 Active Problem Peripheral vascular disease, unspecified I73.9 Active Problem Obesity E66.9 Active Medications Medication Code System Code Instructions Start Date End Date Status Dosage Imitrex [facility] 01516635857 50 mg Orally Once a day January 24, 2015 Active 1 tablet as needed one time; can repeat in 2 hrs if headache persists Valsartan-Hydrochlorothiazide [facility] 57662663930 160-12.5 MG Oral Active TK 1 T PO QD Citalopram Hydrobromide ND 07714503419 10 mg Orally Once a day Oct 31, 2018 Active 1 tablet Metformin HCl ND 44359787605 500 mg Orally twice a day (bid) Sep 01, 2018 Active 1 tablet with a meal Repatha SureClick [facility] 58477237285 140 MG/ML Subcutaneous every 2 weeks Oct 31, 2018 May 29, 2019 Active 1 ml Aspirin ND 68332932588 81 MG Orally Once a day Oct 01, 2017 Active 1 tablet Ergocalciferol [facility] 23404214161 29424 UNIT Orally once per week Sep 01, 2018 February 16, 2019 Active 1 capsule Results No Known Results Summary Purpose eClinicalWorks Submission
--- OUTSIDE RECORDS SUMMARY | 2019-07-08 11:10 | XMS REPORT ---
Author Author Danilo Duong [facility] eClinicalWorks Address Unknown Phone Unavailable Care Team Providers Care Registered Nurse Float Pool Name Role Phone Danilo Duong Unavailable Allergies, Adverse Reactions, Alerts Substance Reaction Event Type Lipitor muscle aches Drug Allergy Bactrim hives Drug Allergy pravastatin dizziness and leg cramps Non Drug Allergy metformin leg cramps Non Drug Allergy Problems Problem Type Condition Code Onset Dates Condition Status Problem Low back pain M54.5 Active Problem Essential hypertension I10 Active Problem Surgical menopause N95.8 Active Problem Type 2 diabetes mellitus without complication, 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 Problem Hyperlipidemia E78.5 Active Problem Morbid obesity E66.01 Active Problem Prediabetes R73.09 Active Problem History of breast cancer Z85.3 Active Problem Vitamin D deficiency E55.9 Active Problem Obesity E66.9 Active Assessment Morbid obesity E66.01 Active Assessment UTI (lower urinary tract infection) N39.0 Active Assessment Hyperlipidemia E78.5 Active Assessment Essential hypertension I10 Active Assessment Low back pain M54.5 Active Assessment Vitamin D deficiency E55.9 Active Assessment Type 2 diabetes mellitus without complication, 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 79847868504 81550 UNIT Orally once a week Active 1 capsule Nexium ND 88809064006 40 MG Orally Once a day Oct 01, 2017 Active 1 capsule Hydrochlorothiazide ND 86008551495 12.5 MG Orally pm Oct 01, 2017 Active 1 tablet in the morning Aspirin ND 84975393632 81 MG Orally Once a day Oct 01, 2017 Active 1 tablet Valsartan-Hydrochlorothiazide ND 95917955325 160-12.5 MG Oral Active TK 1 T PO QD Tamiflu ND 42327403817 75 mg Orally Twice a day Sep 06, 2017 Active 1 capsule Amlodipine Besylate NDC 0 10.0 Milligram by mouth daily Active 1 tablet Imitrex NDC 39677688164 50 mg Orally Once a day January 24, 2015 Active 1 tablet as needed one time; can repeat in 2 hrs if headache persists Vital Signs Date/Time: Aug 26, 2018 BMI 34.00 Index Weight 177 lbs Height 60.5 in Temperature 98.3 F Cardiac Monitoring Heart Rate 82 /min Blood Pressure Diastolic 80 mm Hg Blood Pressure Systolic 130 mm Hg Results No Known Results Summary Purpose eClinicalWorks Submission
--- OUTSIDE RECORDS SUMMARY | 2019-07-08 11:10 | XMS REPORT ---
Author Author Azar Santamaria Organization [employer] Address Unknown Phone Unavailable Care Team Providers Care Rn Ambulatory Name Role Phone Azar Santamaria CP Unavailable Allergies, Adverse Reactions, Alerts Substance Reaction Event Type Lipitor muscle aches Drug Allergy Bactrim hives Drug Allergy pravastatin dizziness and leg cramps Non Drug Allergy metformin leg cramps Non Drug Allergy Problems Problem Type Condition Code Onset Dates Condition Status Assessment History of breast cancer Z85.3 Active Assessment Morbid obesity E66.01 Active Assessment Low back pain M54.5 Active Assessment Myalgia M79.10 Active Problem History of breast cancer Z85.3 Active Assessment Vitamin D deficiency E55.9 Active Problem Obesity E66.9 Active Assessment LFT elevation R94.5 Active Problem Surgical menopause N95.8 Active Problem Hyperlipidemia E78.5 Active Problem Vitamin D deficiency E55.9 Active Problem Family history of premature CAD Z82.49 Active Problem Statin intolerance Z78.9 Active Assessment Anxiety F41.9 Active Assessment Type 2 diabetes mellitus without complication, unspecified group home insulin use status E11.9 Active Problem Anxiety F41.9 Active Assessment Peripheral vascular disease, unspecified I73.9 Active Problem Morbid obesity E66.01 Active Problem Type 2 diabetes mellitus without complication, unspecified group home insulin use status E11.9 Active Problem Familial hypercholesterolemia E78.01 Active Problem Type 2 diabetes mellitus without complication, without long-term current use of insulin E11.9 Active Assessment Statin intolerance Z78.9 Active Assessment Familial hypercholesterolemia E78.01 Active Assessment Other chest pain R07.89 Active Assessment Family history of premature CAD Z82.49 Active Problem Low back pain M54.5 Active Problem Essential hypertension I10 Active Problem Peripheral vascular disease, unspecified I73.9 Active Medications Medication Code System Code Instructions Start Date End Date Status Dosage Valsartan-Hydrochlorothiazide [facility] 76598755605 160-12.5 MG Oral Active TK 1 T PO QD Citalopram Hydrobromide [facility] 32615114577 10 mg Orally Once a day Oct 31, 2018 Active [address] [facility] 55023360006 54209 UNIT Orally once per week Sep 01, 2018 February 16, 2019 Active [address] [facility] 12103141053 81 MG Orally Once a day Oct 01, 2017 Active [address] [facility] 24184519589 140 MG/ML Subcutaneous every 2 weeks Oct 31, 2018 May 29, 2019 Active [address] [facility] 34377149942 500 mg Orally twice a day (bid) Sep 01, 2018 Active 1 tablet with a meal Imitrex [facility] 56942709666 50 mg Orally Once a day January 24, 2015 Active 1 tablet as needed one time; can repeat in 2 hrs if headache persists Vital Signs Date/Time: Oct 31, 2018 BMI 32.46 Index Weight 169 lbs Height 60.5 in Cardiac Monitoring Heart Rate 76 /min Blood Pressure Diastolic 82 mm Hg Blood Pressure Systolic 128 mm Hg Results No Known Results Summary Purpose eClinicalWorks Submission
--- OUTSIDE RECORDS SUMMARY | 2019-07-08 11:10 | XMS REPORT ---
Author Author Aida Avila Organization eClinicalWorks Address Unknown Phone Unavailable Care Team Providers Care Information Services Consultant Name Role Phone Aida Avila CP Unavailable Allergies No Known Allergies Problems Problem Type Condition Code Onset Dates Condition Status Problem Surgical menopause N95.8 Active Problem Low back pain M54.5 Active Problem Hyperlipidemia E78.5 Active Problem Vitamin D deficiency E55.9 Active Problem Type 2 diabetes mellitus without complication, unspecified fdc insulin use status E11.9 Active Problem History of breast cancer Z85.3 Active Problem Essential hypertension I10 Active Problem Obesity E66.9 Active Problem Prediabetes R73.09 Active Medications Medication Code System Code Instructions Start Date End Date Status Dosage Nexium [facility] 48303712981 40 MG Orally Once a day Oct 01, 2017 Active 1 capsule Magnesium [facility] 98043338831 250 MG Orally Once a day Oct 01, 2017 Oct 31, 2017 Active 1 tablet with a meal Hydrochlorothiazide ND 97375162160 12.5 MG Orally Once a day Oct 01, 2017 Active 1 tablet in the morning K-Tab ND 50958758993 20 MEQ Orally Once a day Oct 01, 2017 Oct 31, 2017 Active 1 tablet with food Aspirin ND 03665978165 81 MG Orally Once a day Oct 01, 2017 Active 1 tablet Results No Known Results Summary Purpose eClinicalWorks Submission
--- OUTSIDE RECORDS SUMMARY | 2019-07-08 11:10 | XMS REPORT ---
Author Author Sobia Gordon [facility] eClinicalWorks Address Unknown Phone Unavailable Care Team Providers Care Software Tester Name Role Phone Sobia Gordon CP Unavailable Allergies, Adverse Reactions, Alerts Substance Reaction Event Type Lipitor muscle aches Drug Allergy Bactrim hives Drug Allergy Encounters Encounter Location Date RESULTS [facility] Jul 10, 2013 Problems Problem Type Condition ICD-9 Code Onset Dates Condition Status Assessment Hypertension 401.9 Active Problem Hypertension 401.9 Active Problem History of breast cancer V10.3 Active Problem Impaired fasting glucose 790.21 Active Assessment Cough 786.2 Active Assessment Elevated liver enzymes 790.4 Active Problem Obesity 278.00 Active Problem Elevated liver enzymes 790.4 Active Medications Medication Code System Code Instructions Start Date End Date Status Dosage Cipro [facility] [address]-62 500 mg Orally every 12 hrs Active 1 tablet Doxycycline Monohydrate [facility] [address]-94 100 mg Orally Once a day Active 1 capsule Amlodipine Besylate [facility] [address]-63 10.0 Milligram by mouth daily Active [address] [facility] [address]-21 200 MG Orally Three times a day PRN Jul 10, 2013 Jul 20, 2013 Active 1 capsule as needed Amoxicillin [facility] [address]-46 875 MG Orally Twice a day Active 1 tablet Tamoxifen Citrate [facility] [address]-36 20 MG Orally Once a day Active 1 tablet Social History Social History Element Qualifiers Date Reported children . Judah and Velma Jul 10, 2013 Tobacco Use: . Are you a: never smoker Jul 10, 2013 Marital Status: . Thiago Dietz Jul 10, 2013 Do you drink alcohol? . Status: Yes, Type: Rarely Jul 10, 2013 Occupation: employed. [employer] Jul 10, 2013 Family history Qualifier Description Comment Date Reported Father alive heart disease Jul 10, 2013 Mother alive hypertension, diabetes Jul 10, 2013 Paternal Grandmother alzheimer's dementia, diabetes Jul 10, 2013 Vital Signs Date/Time: Jul 10, 2013 Weight 166 lbs Height 60.5 inches Cardiac Monitoring Heart Rate 96 Beats per Minute Blood Pressure Diastolic 96 mm Hg Blood Pressure Systolic 148 mm Hg Summary Purpose eClinicalWorks Submission
--- OUTSIDE RECORDS SUMMARY | 2019-07-08 11:10 | XMS REPORT ---
Author Author Aida Avila [facility] eClinicalWorks Address Unknown Phone Unavailable Care Team Providers Care President [place] Name Role Phone Aida Avila Unavailable Allergies, Adverse Reactions, Alerts Substance Reaction Event Type Lipitor muscle aches Drug Allergy Bactrim hives Drug Allergy pravastatin dizziness and leg cramps Non Drug Allergy metformin leg cramps Non Drug Allergy Problems Problem Type Condition Code Onset Dates Condition Status Assessment Acute cystitis with hematuria N30.01 Active Problem Surgical menopause N95.8 Active Problem Low back pain M54.5 Active Assessment Essential hypertension I10 Active Problem Hyperlipidemia E78.5 Active Problem Vitamin D deficiency E55.9 Active Problem Type 2 diabetes mellitus without complication, unspecified 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.9 Active Problem History of breast cancer Z85.3 Active Problem Essential hypertension I10 Active Problem Obesity E66.9 Active Problem Prediabetes R73.09 Active Medications Medication Code System Code Instructions Start Date End Date Status Dosage Cipro [facility] 38177020903 500 mg Orally twice a day (bid) February 07, 2018 February 14, 2018 Active 1 tablet Vitamin D (Ergocalciferol) [facility] 65648277710 99137 UNIT Orally once a week Active 1 capsule Imitrex [facility] 65785491965 50 mg Orally Once a day January 24, 2015 Active 1 tablet as needed one time; can repeat in 2 hrs if headache persists Hydrochlorothiazide ND 59487492067 12.5 MG Orally pm Oct 01, 2017 Active 1 tablet in the morning Nexium ND 83648128896 40 MG Orally Once a day Oct 01, 2017 Active 1 capsule Aspirin ND 05787827372 81 MG Orally Once a day Oct 01, 2017 Active 1 tablet Tamiflu ND 48762338339 75 mg Orally Twice a day Sep 06, 2017 Active 1 capsule Amlodipine Besylate ND 0 10.0 Milligram by mouth daily Active 1 tablet Vital Signs Date/Time: February 07, 2018 BMI 33.03 Index Weight 172 lbs Height 60.5 in Cardiac Monitoring Heart Rate 85 /min Blood Pressure Diastolic 80 mm Hg Blood Pressure Systolic 130 mm Hg Results Name Result Date Reference Range Unit Abnormality Flag URINE AUTO W/O SCOPE ----Spec [place] 1.015 20180207 ----Turbidity Clear [id number] ----Glucose Negative 20180207 ----Ketones Negative [id number] ----Blood MODERATE++ 20180207 ----Bili SMALL++ 20180207 ----Color yellow 20180207 ----pH 5.0 20180207 ----Leuk Est Large +++ 20180207 ----Nitrite Negative 20180207 ----Urobilinogen 0.2 20180207 ----Protein TRACE [id number] Summary Purpose eClinicalWorks Submission
--- OUTSIDE RECORDS SUMMARY | 2019-07-08 11:10 | XMS REPORT ---
Author Author Azar Santamaria Organization eClinicalWorks Address Unknown Phone Unavailable Care Team Providers Care Youth Ministry Director Name Role Phone Azar Santamaria CP Unavailable [...] Type 2 diabetes mellitus without complication, unspecified [facility] insulin use status E11.9 Active Problem Familial hypercholesterolemia E78.01 Active Problem Type 2 diabetes mellitus without complication, without long-term current use of insulin E11.9 Active Problem Low back pain M54.5 Active Problem Essential hypertension I10 Active Problem History of breast cancer Z85.3 Active Problem Peripheral vascular disease, unspecified I73.9 Active Problem Obesity E66.9 Active Medications No Known Medications Results No Known Results Summary Purpose eClinicalWorks Submission
--- OUTSIDE RECORDS SUMMARY | 2019-07-08 11:10 | XMS REPORT ---
Author Author Abbey Clark Organization eClinicalWorks Address Unknown Phone Unavailable Care Team Providers Care Project Geologist Name Role Phone Abbey Clark CP Unavailable [...] Type 2 diabetes mellitus without complication, unspecified half-way insulin use status E11.9 Active Problem Familial [...]
--- OUTSIDE RECORDS SUMMARY | 2019-07-08 11:10 | XMS REPORT ---
Author Author Aida Avila Organization eClinicalWorks Address Unknown Phone Unavailable Care Team Providers Care [employer] Senior Officer Name Role Phone Aida Avila CP Unavailable Allergies, Adverse Reactions, Alerts Substance Reaction Event Type Lipitor muscle aches Drug Allergy Bactrim hives Drug Allergy pravastatin dizziness and leg cramps Non Drug Allergy metformin leg cramps Non Drug Allergy Problems Problem Type Condition Code Onset Dates Condition Status Assessment Flu-like symptoms R68.89 Active Problem Surgical menopause N95.8 Active Problem Low back pain M54.5 Active Assessment Essential hypertension I10 Active Problem Hyperlipidemia E78.5 Active Problem Vitamin D deficiency E55.9 Active Problem 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 2 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 mellitus without complication, 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 Problem History of breast cancer Z85.3 Active Problem Essential hypertension I10 Active Problem Obesity E66.9 Active Problem Prediabetes R73.09 Active Medications Medication Code System Code Instructions Start Date End Date Status Dosage Tamiflu [facility] 48426536290 75 mg Orally Twice a day Sep 06, 2017 Active 1 capsule Bromfed DM [facility] 97808914104 30-2-10 MG/5ML Orally every 6 hrs PRN Sep 06, 2017 Sep 13, 2017 Active 10 ml as needed Vitamin D (Ergocalciferol) [facility]] 93184357589 50750 UNIT Orally once a week Active 1 capsule Imitrex [facility]] 83739653814 50 mg Orally Once a day January 24, 2015 Active 1 tablet as needed one time; can repeat in 2 hrs if headache persists Amlodipine Besylate [facility] 2] [address]-27 10.0 Milligram by mouth daily Active 1 tablet Vital Signs Date/Time: Sep 06, 2017 BMI 32.65 Index Weight 170 lbs Height 60.5 in Temperature 98.0 F Cardiac Monitoring Heart Rate 78 /min Blood Pressure Diastolic 74 mm Hg Blood Pressure Systolic 130 mm Hg Results Name Result Date Reference Range Unit Abnormality Flag RAPID FLU ----Result positive A [id number] Summary Purpose eClinicalWorks Submission
--- OUTSIDE RECORDS SUMMARY | 2019-07-08 11:11 | XMS REPORT ---
Author Author Azar Santamaria Organization eClinicalWorks Address Unknown Phone Unavailable Care Team Providers Care Program Aide Name Role Phone Azar Santamaria CP Unavailable Encounters Encounter Location Date ER FOLLOW UP [facility] January 24, 2015 PHYSICAL [facility] Sep 05, 2015 Unknown [facility] Oct 09, 2015 6 MONTH FOLLOW UP [facility] February 13, 2016 RESULTS [facility] Jul 10, 2013 pain on rt side [facility] April 17, 2014 [place] April 19, 2014 Petra-Azar [facility] March 05, 2016 Problems Problem Type Condition ICD-9 Code Onset Dates Condition Status Assessment Chest pain R07.9 Active Problem Prediabetes R73.09 Active Problem Vitamin D deficiency E55.9 Active Problem Hyperlipidemia E78.5 Active Problem History of breast cancer Z85.3 Active Problem Obesity E66.9 Active Problem Surgical menopause N95.8 Active Problem Essential hypertension I10 Active Medications Medication Code System Code Instructions Start Date End Date Status Dosage Amoxicillin [facility] [address]-19 500 mg Orally three times a day (tid) March 03, 2016 March 13, 2016 Active 1 tablet MetFORMIN HCl ER [facility] [address]-20 750 MG Orally Once a day February 13, 2016 Active 1 tablet with evening meal Pravastatin Sodium [facility] [address]-64 40 mg Orally Once a day February 13, 2016 Active 1 tablet Amlodipine Besylate [facility] [address]-42 10.0 Milligram by mouth daily Active 1 tablet Imitrex [facility] [address]-30 50 mg Orally Once a day January 24, 2015 Active 1 tablet as needed one time; can repeat in 2 hrs if headache persists Vitamin D (Ergocalciferol) [facility] [address]-31 21525 UNIT Orally once per week February 13, 2016 Jul 12, 2016 Active 1 capsule Tamoxifen Citrate [facility] [address]-34 20 mg Orally once a day Active 1 tablet Social History Social History Element Qualifiers Date Reported Depression Screening: . 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
--- OUTSIDE RECORDS SUMMARY | 2019-07-08 11:11 | XMS REPORT ---
Author Author Azar Santamaria Organization eClinicalWorks Address Unknown Phone Unavailable Care Team Providers Care Kitchen Supervisor Name Role Phone Azar Santamaria CP Unavailable Encounters Encounter Location Date ER FOLLOW UP [facility] January 24, 2015 PHYSICAL [facility] Sep 05, 2015 Unknown [facility] Oct 09, 2015 6 MONTH FOLLOW UP [facility] February 13, 2016 RESULTS [facility] Jul 10, 2013 pain on rt side [facility] April 17, 2014 [place] [facility] April 19, 2014 Petar-Azar [facility] March 05, 2016 Unknown [facility] March 03, 2016 Problems Problem Type Condition ICD-9 Code Onset Dates Condition Status Problem Prediabetes R73.09 Active Problem Vitamin D deficiency E55.9 Active Problem Hyperlipidemia E78.5 Active Problem History of breast cancer Z85.3 Active Problem Obesity E66.9 Active Problem Surgical menopause N95.8 Active Problem Essential hypertension I10 Active Medications Medication Code System Code Instructions Start Date End Date Status Dosage Amoxicillin [facility] [address]-12 500 mg Orally three times a day (tid) March 03, 2016 March 13, 2016 Active 1 tablet Social History Social History [...] Type: Rarely February 13, 2016 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
--- OUTSIDE RECORDS SUMMARY | 2019-07-08 11:11 | XMS REPORT ---
Author Author Azar Santamaria Organization [employer] Address Unknown Phone Unavailable Care Team Providers Care Retail Aide Name Role Phone Azar Santamaria CP Unavailable Encounters Encounter Location Date ER FOLLOW UP [facility] January 24, 2015 PHYSICAL [facility] Sep 05, 2015 Unknown [facility] Oct 09, 2015 6 MONTH FOLLOW UP [facility] February 13, 2016 RESULTS [facility] Jul 10, 2013 pain on rt side [facility] April 17, 2014 [place]-FBW [facility] April 19, 2014 Results [facility] April 28, 2016 Echo-Azar [facility] March 05, 2016 Unknown [facility] March 03, 2016 Problems Problem Type Condition ICD-9 Code Onset Dates Condition Status Problem Low back pain M54.5 Active Problem Prediabetes R73.09 Active Problem Vitamin D deficiency E55.9 Active Problem Hyperlipidemia E78.5 Active Problem History of breast cancer Z85.3 Active Problem Obesity E66.9 Active Problem Surgical menopause N95.8 Active Problem Essential hypertension I10 Active Social History Social History Element Qualifiers [...] Type: Rarely February 13, 2016 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
--- OUTSIDE RECORDS SUMMARY | 2019-07-08 11:11 | XMS REPORT ---
Author Author Azar Santamaria Organization [employer] Address Unknown Phone Unavailable Care Team Providers Care Automotive Glass Technician Name Role Phone Azar Santamaria CP Unavailable Allergies, Adverse Reactions, Alerts Substance Reaction Event Type Lipitor muscle aches Drug Allergy Bactrim hives Drug Allergy Encounters Encounter Location Date ER FOLLOW UP [facility] January 24, [address] [facility] Sep 05, 2015 Unknown [facility] Oct 09, 2015 6 MONTH FOLLOW UP [facility] February 13, 2016 RESULTS [facility] Jul 10, 2013 pain on rt side [facility] April 17, [address] [facility] April 19, 2014 Problems Problem Type Condition ICD-9 Code Onset Dates Condition Status Assessment Hyperlipidemia E78.5 Active Assessment Vitamin D deficiency E55.9 Active Assessment Prediabetes R73.09 Active Problem Prediabetes R73.09 Active Problem Vitamin D deficiency E55.9 Active Problem Hyperlipidemia E78.5 Active Problem History of breast cancer Z85.3 Active Problem Obesity E66.9 Active Problem Surgical menopause N95.8 Active Problem Essential hypertension I10 Active Assessment Fatigue R53.83 Active Assessment History of strep sore throat Z87.09 Active Assessment Chest pain R07.9 Active Medications Medication Code System Code Instructions Start Date End Date Status Dosage Vitamin D (Ergocalciferol) [facility] [address]-31 27130 UNIT Orally once per week February 13, 2016 Jul 12, 2016 Active 1 capsule MetFORMIN HCl ER [facility] [address]-32 750 MG Orally Once a day February 13, 2016 Active 1 tablet with evening meal Pravastatin Sodium [facility] [address]-29 40 mg Orally Once a day February 13, 2016 Active 1 tablet Amlodipine Besylate [facility] [address]-45 10.0 Milligram by mouth daily Active 1 tablet Tamoxifen Citrate [facility] [address]-39 20 mg Orally once a day Active 1 tablet Imitrex [facility] [address]-79 50 mg Orally Once a day January 24, 2015 Active 1 tablet as needed one time; can repeat in 2 hrs if headache persists Social History Social History Element Qualifiers Date Reported Depression Screening: . negative February 13, 2016 Flu Vaccine: . 2014February 13, 2016 children . Librado February 13, 2016 Tobacco Use: . Are you a: never smoker February 13, 2016 Marital Status: . Thiago Dietz February 13, 2016 Caffeine intake? . Status: Yes February 13, 2016 Do you exercise? . Answer: Yes February 13, 2016 Do you drink alcohol? . 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
--- OUTSIDE RECORDS SUMMARY | 2019-07-08 11:11 | XMS REPORT ---
Author Author Azar Santamaria Organization [employer] Address Unknown Phone Unavailable Care Team Providers Care Protective Officer Name Role Phone Azar Santamaria CP Unavailable Encounters Encounter Location Date ER FOLLOW UP [facility] January 24, 2015 PHYSICAL [facility] Sep 05, 2015 Unknown [facility] Oct 09, 2015 RESULTS [facility] Jul 10, 2013 pain on rt side [facility] April 17, 2014 [place]-FBW [facility] April 19, 2014 Problems Problem Type Condition ICD-9 Code Onset Dates Condition Status Problem Vitamin D deficiency E55.9 Active Problem Surgical menopause N95.8 Active Problem Prediabetes R73.09 Active Problem Obesity E66.9 Active Problem Essential hypertension I10 Active Problem History of breast cancer Z85.3 Active Medications Medication Code System Code Instructions Start Date End Date Status Dosage Ergocalciferol [facility] [address]-81 66118 UNIT Orally once per week Oct 09, 2015 February 06, 2016 Active 1 capsule Social History Social History Element Qualifiers Date Reported Depression Screening: . 03/2014Sep 05, 2015 Flu Vaccine: . no Sep 05, 2015 children . Judah and Velma Sep 05, 2015 Tobacco Use: . Are you a: never smoker Sep 05, 2015 Marital Status: . Thiago Dietz Sep 05, 2015 Caffeine intake? . Status: Yes Sep 05, 2015 Do you exercise? . Answer: Yes Sep 05, 2015 Do you drink alcohol? . 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
[2019-07-08] MEDS ORDERED: ONDANSETRON HCL INJ 2MG/ML 2ML 2 MG/ML VIAL IV STA (11:56)
[2019-07-08] MEDS ORDERED: MORPHINE SULFATE 5 MG/ML VIAL IV ONE (12:00)
[2019-07-08] MEDS ORDERED: SODIUM CHLORIDE 0.9% 1000ML 1,000 ML IV SCH (12:00)
[2019-07-08] MEDS ORDERED: MORPHINE SULFATE INJ 4 MG/ML INJ 1ML IV ONE (12:15)
[2019-07-08 12:21] LABS: CLARITY,URINE CLEAR (CLEAR); COLOR,URINE YELLOW (YELLOW)
[2019-07-08 12:22] LABS: BILIRUBIN,URINE NEGATIVE (NEGATIVE); KETONES,URINE NEGATIVE (NEGATIVE); LEUKOCYTE ESTERASE ,URINE NEGATIVE (NEGATIVE); NITRITE,URINE NEGATIVE (NEGATIVE); PROTEIN,URINE DIPSTICK NEGATIVE (NEGATIVE); URINE UROBILINOGEN 0.2 mg/dL (0.2 - 1)
[2019-07-08 12:40] LABS: BACTERIA,URINE MODERATE /HPF; EPITHELIAL CELLS,URINE FEW /LPF; RENAL EPITHELIAL CELLS,URINE MODERATE; WBC,URINE (MAN) 0-5 /HPF (0-5)
[2019-07-08 13:26] LABS: BASOPHILS % 0.7 % (0.0-1.0); EOSINOPHILS % 0.5 % (0.0-6.0); HEMATOCRIT 40.8 % (34.2-44.1); HEMOGLOBIN 13.4 g/dL (12.0-16.0); LYMPHOCYTES # (AUTO) 1.9 (1.0-3.2); LYMPHOCYTES % 31.6 % (18.0-39.1); MEAN CORPUSCULAR HEMOGLOBIN 27.1 pg (28-32); MEAN CORPUSCULAR HGB CONC 32.8 g/dL (31-35); MEAN CORPUSCULAR VOLUME 82.6 fL (81-99); MONOCYTES # (AUTO) 0.4 (0.2-0.8); NEUTROPHILS # (AUTO) 3.7 (2.1-6.9); NEUTROPHILS % 60.9 % (38.7-80.0); PLATELET COUNT 259 x10e3/uL (140-360); RED BLOOD COUNT 4.94 x10e6/uL (3.6-5.1); RED CELL DISTRIBUTION WIDTH 13.4 % (11.7-14.4)
[2019-07-08 13:32] LABS: INR 0.86; PROTHROMBIN TIME 12.2 seconds (11.9-14.5)
[2019-07-08 13:33] LABS: PARTIAL THROMBOPLASTIN TIME 23.1 seconds (23.8-35.5)
[2019-07-08 13:42] LABS: ALANINE AMINOTRANSFERASE 134 IU/L (0-55); ALBUMIN 3.9 g/dL (3.5-5.0); ALBUMIN/GLOBULIN RATIO 1.1 (0.8-2.0); ALKALINE PHOSPHATASE 116 IU/L (40-150); ANION GAP 11.9 mmol/L (8-16); BLOOD UREA NITROGEN 13 mg/dL (7-26); BUN/CREATININE RATIO 17 (6-25); CALCIUM 9.7 mg/dL (8.4-10.2); CARBON DIOXIDE 29 mmol/L (22-29); CHLORIDE 101 mmol/L (98-107); CREATININE, SERUM 0.78 mg/dL (0.57-1.11); EST GLOMERULAR FILTRATION RATE > 60 ML/MIN (60-); GLUCOSE 112 mg/dL (74-118); POTASSIUM 3.9 mmol/L (3.5-5.1); SODIUM 138 mmol/L (136-145)
[2019-07-08 13:43] LABS: CREATINE KINASE 106 IU/L (29-168)
[2019-07-08 14:33] LABS: AMYLASE 179 U/L (25-125); LIPASE 175 U/L (8-78)
--- NOTE | 2019-07-08 16:09 | Diagnostic Imaging Report ---
EXAMINATION: CT of the abdomen and pelvis with contrast. TECHNIQUE: Spiral CT images of the abdomen and pelvis were performed from the lung bases to the lesser trochanters after the intravenous administration of 100 cc of Isovue 370 and the oral administration of water. Coronal and sagittal reformatted images were obtained. COMPARISON: None. CLINICAL HISTORY:Suspected pancreatitis DISCUSSION: ABDOMEN/PELVIS: LOWER THORAX:Unremarkable. HEPATOBILIARY: Diffuse decreased attenuation of the hepatic parenchyma compared to the spleen, consistent with steatosis. No focal hepatic lesions. No intra or extrahepatic biliary ductal dilation. GALLBLADDER: Cholecystectomy clips. SPLEEN: No splenomegaly. PANCREAS: No focal masses or ductal dilatation. Mild amount of peripancreatic stranding at the distal pancreatic body and tail (for example series 2, image 22) with small amount of simple fluid following fascial planes in the anterior pararenal space (series 2, image 24). ADRENALS: No adrenal nodules. KIDNEYS/URETERS: 3-4 mm nonobstructing calculus in the left inferior pole (series 2, image 36). No other renal or ureteral calculi, hydronephrosis or obstruction. No solid enhancing masses. PELVIC ORGANS/BLADDER: Bladder is unremarkable. Uterus is absent. No adnexal masses. PERITONEUM/RETROPERITONEUM: No free air or fluid. LYMPH NODES: No intra-abdominal, retroperitoneal, pelvic or inguinal lymphadenopathy. VESSELS: The celiac trunk,superior and inferior mesenteric and bilateral renal arteries are patent The portal, superior mesenteric and splenic veins are patent. GI TRACT: No bowel dilation or evidence of obstruction. No pericolonic inflammatory changes. Stomach is decompressed and grossly unremarkable. BONES AND SOFT TISSUE: No aggressive lytic lesions. No soft tissue abnormalities. IMPRESSION: 1. Findings in the distal pancreatic body and tail suggestive of mild interstitial edematous pancreatitis with acute peripancreatic fluid collection (revised 2012 [place] classification) in the setting of elevated amylase and lipase. 2. 3-4 mm nonobstructing calculus in the left inferior pole. 3. Diffuse hepatic steatosis. Signed by: Dr. Vitaly Cuellar M.D. on 07/08/2019 4:06 PM
[2019-07-08] MEDS ORDERED: MORPHINE SULFATE 2 MG/ML SYR 1ML IV PRN (17:00)
[2019-07-08] MEDS ORDERED: DEXTROSE 50% SYRINGE 50 ML IV PRN (17:00)
[2019-07-08] MEDS ORDERED: ONDANSETRON HCL INJ 2MG/ML 2ML 2 MG/ML VIAL IV PRN (17:00)
--- OUTSIDE RECORDS SUMMARY | 2019-07-08 17:06 | XMS REPORT ---
Author Author [facility] Address Unknown Phone Unavailable Care Team Providers Care Perinatal Social Worker Name Role Phone Radha GREEN Unavailable Unavailable Problems This patient has no known problems. Allergies, Adverse Reactions, Alerts This patient has no known allergies or adverse reactions. Medications This patient has no known medications. Results Test Description Test Time Test Comments Text Results Atomic Results Result Comments CT ABDOMEN/PELVIS W 2019-07-08 15:50:00 [facility] [address] [id number] Patient Name: DOLORES CALDWELL MR #: [id number] : 1965 Age/Sex: 53/F Req #: [id number] Adm Physician: Ordered by: SHANIA GREEN MD Report #: [id number] Location: ER Room/Bed: Procedure: [id number] CT/CT ABDOMEN/PELVIS W Exam Date: 07/08/19 Exam Time: 1451 REPORT STATUS: Signed EXAMINATION: CT of the abdomen and pelvis with contrast. TECHNIQUE: Spiral CT images of the abdomen and pelvis were performed from the lung bases to the lesser trochanters after the intravenous administration of 100 cc of Isovue 370 and the oral administration of water. Coronal and sagittal reformatted images were obtained. COMPARISON: None. CLINICAL HISTORY:Suspected pancreatitis DISCUSSION: ABDOMEN/PELVIS: LOWER THORAX:Unremarkable. HEPATOBILIARY: Diffuse decreased attenuation of the hepatic parenchyma compared to the spleen, consistent with steatosis. No focal hepatic lesions. No intra or extrahepatic biliary ductal dilation. GALLBLADDER: Cholecystectomy clips. SPLEEN: No splenomegaly. PANCREAS: No focal masses or ductal dilatation. Mild amount of peripancreatic stranding at the distal pancreatic body and tail (for example series 2, image 22) with small amount of simple fluid following fascial planes in the anterior pararenal space (series 2, image 24). ADRENALS: No adrenal nodules. KIDNEYS/URETERS: 3-4 mm nonobstructing calculus in the left inferior pole (series 2, image 36). No other renal or ureteral calculi, hydronephrosis or obstruction. No solid enhancing masses. PELVIC ORGANS/BLADDER: Bladder is unremarkable. Uterus is absent. No adnexal masses. PERITONEUM/RETROPERITONEUM: No free air or fluid. LYMPH NODES: No intra-abdominal, retroperitoneal, pelvic or inguinal lymphadenopathy. VESSELS: The celiac trunk,superior and inferior mesenteric and bilateral renal arteries are patent The portal, superior mesenteric and splenic veins are patent. GI TRACT: No bowel dilation or evidence of obstruction. No pericolonic inflammatory changes. Stomach is decompressed and grossly unremarkable. BONES AND SOFT TISSUE: No aggressive lytic lesions. No soft tissue abnormalities. IMPRESSION: 1. Findings in the distal pancreatic body and tail suggestive of mild interstitial edematous pancreatitis with acute peripancreatic fluid collection (revised 2012 [place] classification) in the setting of elevated amylase and lipase. 2. 3-4 mm nonobstructing calculus in the left inferior pole. 3. Diffuse hepatic steatosis. Signed by: Dr. Marina Cuellar M.D. on 07/08/2019 4:06 PM Dictated By: MARINA CUELLAR MD [id number] Transcribed By: VIPIN on 07/08/19 1604 COPY TO: SHANIA GREEN MD
--- OUTSIDE RECORDS SUMMARY | 2019-07-08 17:06 | XMS REPORT | Continuity of Care Document ---
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 Name Role Phone [employer] Information Exchange Unavailable Unavailable Problems Problem Status Onset Date Classification Date Reported Comments Source Urge incontinence Active Diagnosis 03/18/2017 [id number] HTN (hypertension) Active Diagnosis 03/18/2017 [id number] HLD (hyperlipidemia) Active Problem 03/18/2017 [id number] Hx of breast cancer Active Problem 03/18/2017 [id number] Urinary tract infection, site unspecified Active Diagnosis 03/03/2017 [id number] Frequent urination Active Diagnosis 03/18/2017 [id number] Fatigue, unspecified type Active Diagnosis 03/18/2017 [id number] Obesity Active Problem 02/16/2019 [facility] Low back pain Active Problem 02/16/2019 [facility] Hyperlipidemia Active Problem 02/16/2019 [facility] Prediabetes Active Problem 09/02/2018 [facility] Type 2 diabetes mellitus without complication, unspecified [employer] insulin use status Active Problem 02/16/2019 [facility] Essential hypertension Active Problem 02/16/2019 [facility] History of breast cancer Active Problem 02/16/2019 [facility] Vitamin D deficiency Active Diagnosis 02/16/2019 [facility],[id number] Surgical menopause Active Problem 02/16/2019 [facility] Problem 02/16/2019 [facility],[id number] Anxiety Active Problem 02/16/2019 [facility] [...] History of breast cancer Active Problem 05/01/2014 [facility] Impaired fasting glucose Active Problem 05/01/2014 [facility] Elevated liver enzymes Active Diagnosis 05/01/2014 [facility] Arm numbness Active Diagnosis 05/01/2014 [facility] Chest discomfort Active Diagnosis 05/01/2014 [facility] Cough Active Diagnosis 07/14/2013 [facility] Elevated liver enzymes Active Diagnosis 07/14/2013 [facility] Chest discomfort Active Diagnosis 12/22/2018 [facility] Chest pain Active Diagnosis 03/10/2016 [facility] Fatigue Active Diagnosis 02/17/2016 [facility] History of strep sore throat Active Diagnosis 02/17/2016 [facility] Medications Medication Details Route Status Patient Instructions Ordering Provider Order Date Source Triamcinolone Acetonide 1 application to affected area Externally Active 0.1 % Externally Twice a day [facility] 01/29/2019 [facility] Farxiga one tablet by mouth Active 5 mg by mouth daily [facility] 01/29/2019 [facility] FreeStyle Aldo [place] as directed in vitro Active - in vitro use qd, DX: E11.9 [facility] 12/11/2018 [facility] FreeStyle Adlo 14 day Sensor System as directed in vitro (DX: 11.9) Active sensor in vitro (DX: 11.9) use daily change sensor every 14 days [facility] 12/11/2018 [facility] Glyxambi 1 tablet in the morning Orally Active 25-5 MG Orally Once a day [facility] 12/07/2018 [facility] Citalopram Hydrobromide 1 tablet Orally Active 10 mg Orally Once a day [facility] 10/31/2018 [facility] Repatha SureClick 1 ml Subcutaneous Active 140 MG/ML Subcutaneous every 2 weeks [facility] 10/31/2018 [facility] Metformin HCl 1 tablet with a meal Orally Active 500 mg Orally twice a day (bid) [facility] 09/01/2018 [facility] Ergocalciferol 1 capsule Orally Active 80678 UNIT Orally once per week [facility] 09/01/2018 [facility] Cipro 1 tablet Orally Active 500 mg Orally twice a day (bid) [place] 02/07/2018 [facility] Nexium 1 capsule Orally Active 40 MG Orally Once a day [facility] 10/01/2017 [facility] Magnesium 1 tablet with a meal Orally Active 250 MG Orally Once a day [place] 10/01/2017 [facility] Hydrochlorothiazide 1 tablet in the morning Orally Active 12.5 MG Orally pm [place]ong 10/01/2017 [facility] K-Tab 1 tablet with food Orally Active 20 MEQ Orally Once a day [place] 10/01/2017 [facility] Aspirin 1 tablet Orally Active 81 MG Orally Once a day [place]al[facility] 10/01/2017 [facility] Aspirin 1 tablet Orally Active 81 MG Orally Every other day [facility] 10/01/2017 [facility] Aspirin 1 tablet Orally Active 81 MG Orally Every other day [facility] 10/01/2017 [facility] Tamiflu 1 capsule Orally Active 75 mg Orally Twice a day [facility] 09/06/2017 [facility] Bromfed DM 10 ml as needed Orally Active 30-2-10 MG/5ML Orally every 6 hrs PRN [place] 09/06/2017 [facility] Amoxicillin 1 tablet Orally Active 500 MG Orally every 12 hrs Rosalio 03/28/2017 [facility] Metformin HCl 1 tablet with meals Orally Active 500 MG Orally Twice a day [facility] 03/02/2017 [id number] Oxybutynin Chloride ER 1 tablet Orally Active 10 MG Orally Once a day [facility] 02/25/2017 [id number] GlipiZIDE 1 tablet Orally Active 5 MG Orally twice a day (bid) [facility] 02/25/2017 2.16.840.1.832573.4.391.11.83673 Ergocalciferol 1 capsule Orally Active 85029 UNIT Orally Once a week [facility] 02/16/2017 2.16.840.1.076161.4.391.11.64558 VESIcare 1 tablet Orally Active 5 MG Orally Once a day [facility] 02/16/2017 2.16840.1.407528.4.391..64743 Zetia 1 tablet Orally Active 10 MG Orally Once a day [facility] 02/16/2017 2.16.840.1.929856.4.391..67706 Ergocalciferol 1 capsule Orally Active 55580 UNIT Orally Once a week [facility] 09/10/2016 2.16.840.1.492969.4.391..00515 Co Q-10 1 capsule with a meal Orally Active 100 MG Orally Once a day [facility] 09/10/2016 2.16.840.1.696139.4.391..85685 Amoxicillin 1 tablet Orally Active 500 mg Orally three times a day (tid) Rosalio 03/03/2016 [facility] MetFORMIN HCl ER 1 tablet with evening meal Orally Active 750 MG Orally Once a day Rosalio 02/13/2016 [facility] Pravastatin Sodium 1 tablet Orally Active 40 mg Orally Once a day [place] 02/13/2016 [facility] Vitamin D (Ergocalciferol) 1 capsule Orally Active 89237 UNIT Orally once per week [place] 02/13/2016 [facility] Ergocalciferol 1 capsule Orally Active 89178 UNIT Orally once per week [place] 10/09/2015 [facility] Imitrex 1 tablet as needed one time; can repeat in 2 hrs if headache persists Orally Active 50 mg Orally Once a day Ros[place]io 01/24/2015 [facility] Imitrex 1 tablet as needed one time; can repeat in 2 hrs if headache persists Orally Active 50 mg Orally Once a day [place] 01/24/2015 [facility] Tessalon 1 capsule as needed Orally Active 200 MG Orally Three times a day PRN Heidi 07/10/2013 [facility] Amlodipine Besylate TAKE 1 TABLET BY MOUTH DAILY NA Active 10 [place]arius [id number] Norvasc 1 tablet Orally Active 10 MG Orally Once a day [facility] 840.1.333353.4.391..85983 Amlodipine Besylate 1 tablet by mouth Active 10.0 Milligram by mouth daily [place] [facility] Tamoxifen Citrate 1 tablet Orally Active 20 mg Orally once a day Rosalio [facility] Vitamin D (Ergocalciferol) 1 capsule Orally Active 95704 UNIT Orally once a week Rosalio [facility] Vitamin D (Ergocalciferol) 1 capsule Orally Active 90628 UNIT Orally once a week [place] [facility] Amlodipine Besylate 1 tablet by mouth Active 10.0 Milligram by mouth daily [place] [facility] Valsartan-Hydrochlorothiazide TK 1 T PO QD Oral Active 160-12.5 MG Oral [place] [facility] Cipro 1 tablet Orally Active 500 mg Orally every 12 hrs Gustavo [facility] Amoxicillin 1 tablet Orally Active 875 MG Orally Twice a day Gustavo [facility] Amlodipine Besylate 1 tablet by mouth Active 10.0 Milligram by mouth daily Gustavo [facility] Doxycycline Monohydrate 1 capsule Orally Active 100 mg Orally Once a day [place] [facility] Allergies, Adverse Reactions, Alerts Substance Category Reaction Severity Reaction type Status Date Reported Comments Source Bactrim Adverse Reaction hives Adverse Reaction Active 01/29/2019 [facility] Lipitor Adverse Reaction muscle aches Adverse Reaction Active 01/29/2019 [facility] pravastatin Adverse Reaction dizziness and leg cramps Adverse Reaction Active 01/29/2019 [facility] metformin Adverse Reaction leg cramps Adverse Reaction Active 01/29/2019 [facility] Immunizations No Data Provided for [...] Value Date Comments Source Weight 174 01/29/2019 [facility] Height 60.5 01/29/2019 [facility] Heart Rate 76 01/29/2019 [facility] Diastolic (mm Hg) 90 01/29/2019 [facility] Systolic (mm Hg) 130 01/29/2019 [facility] Weight 171 12/07/2018 [facility] Height 60.5 [...] Med [facility]oc Systolic (mm Hg) 128 10/31/2018 [facility] Weight [...] [facility] Weight 177 02/16/2017 2.16.840.1.373717.4.391.11.96321 Height 60.8 02/16/2017 2.16.840.1.273701.4.391.11.47304 Temperature Oral (F) 98.2 F 02/16/2017 2.16.840.1.867893.4.391.11.56882 Heart Rate 84 02/16/2017 2.16.840.1.074988.4.391.11.98104 Diastolic (mm Hg) 79 02/16/2017 2.16.840.1.779174.4.391.11.06696 Systolic (mm Hg) 141 02/16/2017 2.16.840.1.858587.4.391.11.09367 Weight 169 02/13/2016 [facility] [...] Provider ADM Date DC Date Status Source [facility] RESULTS [id number] 07/10/2013 07/10/2013 [facility] RESULTS [id number] 07/10/2013 07/10/2013 [facility] RESULTS [id number] 07/10/2013 07/10/2013 [facility] RESULTS [id number] 07/10/2013 07/10/2013 [facility] RESULTS [id number] 07/10/2013 07/10/2013 [facility] RESULTS [id number] 07/10/2013 07/10/2013 [facility] RESULTS [id number] 07/10/2013 07/10/2013 [facility] RESULTS [id number] 07/10/2013 07/10/2013 [facility] pain on rt side [id number] 04/17/2014 04/17/2014 [facility] pain on rt side [id number] 04/17/2014 04/17/2014 [facility] pain on rt side [id number] 04/17/2014 04/17/2014 [facility] pain on rt side [id number] 04/17/2014 04/17/2014 [facility] pain on rt side [id number] 04/17/2014 04/17/2014 [facility] pain on rt side [id number] 04/17/2014 04/17/2014 [facility] pain on rt side [id number] 04/17/2014 04/17/2014 [facility] [id number] 04/19/2014 04/19/2014 [facility] [id number] 04/19/2014 04/19/2014 [facility] [id number] 04/19/2014 04/19/2014 [facility] [id number] 04/19/2014 04/19/2014 [facility] [id number] 04/19/2014 04/19/2014 [facility] [id number] 04/19/2014 04/19/2014 [id number] [id number] 04/19/2014 04/19/2014 [facility] ER FOLLOW UP [id number] 01/24/2015 01/24/2015 [facility] ER FOLLOW UP [id number] 01/24/2015 01/24/2015 [facility] ER FOLLOW UP [id number] 01/24/2015 01/24/2015 [facility] ER FOLLOW UP [id number] 01/24/2015 01/24/2015 [facility] ER FOLLOW UP [id number] 01/24/2015 01/24/2015 [facility] PHYSICAL [id number] 09/05/2015 09/05/2015 [facility] PHYSICAL [id number] 09/05/2015 09/05/2015 [facility] PHYSICAL [id number] 09/05/2015 09/05/2015 [facility] PHYSICAL [id number] 09/05/2015 09/05/2015 [facility] PHYSICAL [id number] 09/05/2015 09/05/2015 [facility] Unknown [id number] 10/09/2015 10/09/2015 [facility] Unknown [id number] 10/09/2015 10/09/2015 [facility] Unknown [id number] 10/09/2015 10/09/2015 [facility] Unknown [id number] 10/09/2015 10/09/2015 [facility] Unknown [id number] 10/09/2015 10/09/2015 [facility] 6 MONTH FOLLOW UP [id number] 02/13/2016 02/13/2016 [facility] 6 MONTH FOLLOW UP [id number] 02/13/2016 02/13/2016 [facility] 6 MONTH FOLLOW UP [id number] 02/13/2016 02/13/2016 [facility] 6 MONTH FOLLOW UP [id number] 02/13/2016 02/13/2016 [facility] Unknown [id number] 03/03/2016 03/03/2016 [facility] Unknown [id number] 03/03/2016 03/03/2016 [facility] [place] [id number] 03/05/2016 03/05/2016 [facility] [place] [id number] 03/05/2016 03/05/2016 [facility] [place] [id number] 03/05/2016 03/05/2016 [facility] Results [id number] 04/28/2016 04/28/2016 [facility] [id number] 09/10/2016 09/10/2016 2.16.840.1.531358.4.391.11.93194 Procedures No Data Provided for This Section [...] Jun 23, 2016 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 Jun 23, 2016 06/23/2016 [id number] Social History ElementQualifiersDate Reported Depression Screening: . [...] Type: Rarely February 13, 2016 Occupation: employed. [place] [place] [employer] E[employer] February 13, 2016 02/13/2016 [facility] Family History Value Date Source QualifierDescriptionCommentDate Reported Father alive heart disease Jul 10, 2013 Mother alive hypertension, diabetes Jul 10, 2013 Paternal Grandmother alzheimer's dementia, diabetes Jul 10, 2013 07/14/2013 [facility] Advance Directives No Data Provided for This Section Functional Status No Data Provided for This Section
[2019-07-08] MEDS ORDERED: MORPHINE SULFATE INJ 4 MG/ML INJ 1ML IV PRN (17:15)
[2019-07-08] MEDS: PANTOPRAZOLE 40 MG 10ML VIAL IV SCH (18:04)
[2019-07-08] MEDS: SODIUM CHLORIDE 0.9% 1000ML 1,000 ML IV SCH (18:04)
[2019-07-08 18:25] LABS: CHOL/HDL RATIO 5.9 (3.0-3.6)
[2019-07-08] MEDS ORDERED: SODIUM CHLORIDE 0.9% 50ML 50 ML ONE (18:50)
[2019-07-08] MEDS ORDERED: IOPAMIDOL 370 MG/ML 200 ML INFUS..BTL INJ ONE (18:51)
--- NOTE | 2019-07-08 18:51 | NUR ---
REPORT GIVEN TO TYLER MORENO
--- NOTE | 2019-07-08 19:50 | NUR ---
Received report from ER nurse.
--- NOTE | 2019-07-08 20:11 | NUR ---
Patient arrived to floor via stretcher.
[2019-07-08] MEDS: INSULIN LISPRO 100 UNIT/1 ML 3ML VIAL SQ SCH (20:48)
[2019-07-08 21:44] VITALS: BP 140/64
[2019-07-08 23:00] VITALS: BP 140/64
[2019-07-09] VITALS (8 sets, daily range): BP systolic 105–137; BP diastolic 52–63
--- NOTE | 2019-07-09 | NUR ---
Restated IV to right hand x2 sticks. Patient tolerated well.
--- NOTE | 2019-07-09 01:00 | NUR ---
Patient requested pain and nausea meds. Meds given as ordered by .
--- NOTE | 2019-07-09 06:00 | NUR ---
Patient resting quitly with no c/o at this time.
[2019-07-09 06:35] LABS: BASOPHILS % 0.7 % (0.0-1.0); EOSINOPHILS % 0.9 % (0.0-6.0); HEMATOCRIT 37.2 % (34.2-44.1); HEMOGLOBIN 12.1 g/dL (12.0-16.0); LYMPHOCYTES # (AUTO) 1.8 (1.0-3.2); LYMPHOCYTES % 40.7 % (18.0-39.1); MEAN CORPUSCULAR HEMOGLOBIN 27.4 pg (28-32); MEAN CORPUSCULAR HGB CONC 32.5 g/dL (31-35); MEAN CORPUSCULAR VOLUME 84.2 fL (81-99); MONOCYTES # (AUTO) 0.3 (0.2-0.8); MONOCYTES % 6.6 % (4.4-11.3); NEUTROPHILS # (AUTO) 2.3 (2.1-6.9); NEUTROPHILS % 50.9 % (38.7-80.0); PLATELET COUNT 223 x10e3/uL (140-360); RED BLOOD COUNT 4.42 x10e6/uL (3.6-5.1); RED CELL DISTRIBUTION WIDTH 13.6 % (11.7-14.4)
[2019-07-09 07:17] LABS: ALANINE AMINOTRANSFERASE 148 IU/L (0-55); ALBUMIN 3.2 g/dL (3.5-5.0); ALBUMIN/GLOBULIN RATIO 1.1 (0.8-2.0); ALKALINE PHOSPHATASE 100 IU/L (40-150); ANION GAP 9.7 mmol/L (8-16); BLOOD UREA NITROGEN 11 mg/dL (7-26); BUN/CREATININE RATIO 16 (6-25); CALCIUM 8.3 mg/dL (8.4-10.2); CARBON DIOXIDE 25 mmol/L (22-29); CHLORIDE 103 mmol/L (98-107); EST GLOMERULAR FILTRATION RATE > 60 ML/MIN (60-); GLUCOSE 97 mg/dL (74-118); LIPASE 42 U/L (8-78); POTASSIUM 3.7 mmol/L (3.5-5.1); SODIUM 134 mmol/L (136-145)
[2019-07-09] MEDS: INSULIN LISPRO 100 UNIT/1 ML 3ML VIAL SQ SCH ×4 (07:30→20:22)
[2019-07-09] MEDS ORDERED: DIOVAN160 MG PO (08:00)
[2019-07-09] MEDS ORDERED: HYDROCHLOROTH12.5 M1 (08:00)
[2019-07-09] MEDS ORDERED: PANTOPRAZOLE SO40 MG PO (08:01)
[2019-07-09] MEDS ORDERED: VITAMIN D22000 UNIT (08:03)
[2019-07-09] MEDS ORDERED: VITAMIN D250000 UNIT PO (08:03)
[2019-07-09] MEDS ORDERED: ZOFRAN8 MG PO (08:06)
[2019-07-09] MEDS ORDERED: TYLENOL WITH C1 EACH PO (08:06)
[2019-07-09] MEDS ORDERED: IMITREX25 MG PO (08:07)
[2019-07-09] MEDS ORDERED: CITALOPRAM HBR20 MG PO (08:08)
[2019-07-09] MEDS: SODIUM CHLORIDE 0.9% 1000ML 1,000 ML IV SCH ×2 (08:50→15:41)
[2019-07-09] MEDS: PANTOPRAZOLE 40 MG 10ML VIAL IV SCH (08:50)
--- NOTE | 2019-07-09 19:26 | NUR ---
PATIENT IN STABLE CONDITION WITH NO S/S OF RESPIRATORY DISTRESS. NO PAIN VOICED. IV FLUIDS INFUSING. CALL LIGHT IS WITHIN REACH, PATIENT INSTRUCTED TO CALL FOR ASSISTANCE NEEDED. BEDSIDE REPORT GIVEN TO ONCOMING NURSE.
[2019-07-10 00:33] VITALS: BP 142/75
[2019-07-10] MEDS: SODIUM CHLORIDE 0.9% 1000ML 1,000 ML IV SCH ×3 (03:26→16:50)
[2019-07-10 04:53] VITALS: BP 121/71
--- NOTE | 2019-07-10 06:26 | History and Physical ---
HISTORY OF PRESENT ILLNESS: The patient is a 53-year-old female with past medical history positive for hyperlipidemia, hypertension, diabetes, history of pancreatitis, came with abdominal pain. She was found to have a recurrent pancreatitis. She was started on n.p.o., IV fluids, and the last lipase is 42, which is normal. The patient has been seen by . REVIEW OF SYSTEMS: CARDIOVASCULAR: No chest pain or palpitation. RESPIRATORY: No shortness of breath. No cough. GASTROINTESTINAL: No nausea. No vomiting. No diarrhea. She had abdominal pain, which is resolved. GENITOURINARY: No frequency or dysuria. PAST MEDICAL HISTORY: Pancreatitis, hypertension, hyperlipidemia, and obesity. SOCIAL HISTORY: She does not smoke. She does not drink. PHYSICAL EXAMINATION: VITAL SIGNS: Blood pressure 137/63, temperature 97.1, heart rate 70 per minute, respiratory rate 18 per minute, and oxygen saturation 98%. HEART: Showed regular rhythm. Normal S1, S2 sound. LUNGS: Clear bilaterally. ABDOMEN: Soft. EXTREMITIES: Show no evidence of cyanosis or hematoma. LABORATORY DATA: On the BMP; sodium 134, potassium 3.7, chloride 103, CO2 of 25, BUN 11, creatinine 0.70, and glucose 97. On the CBC; white blood count 4.52, hemoglobin 12.1, hematocrit 37.2, platelet count 223,000. PT 12.2, INR 0.86, PTT 23.1, AST 117, alkaline phosphatase 148, total bilirubin 0.6, . FINAL IMPRESSION: 1. Acute pancreatitis. 2. Hypertension. 3. Hyperlipidemia. 4. Obesity. 5. Diabetes mellitus type 2. 6. Elevated liver function test. Continue IV fluids. Continue n.p.o. status. Continue Zofran 4 mg IV q.4 hours as needed. Continue monitoring blood sugar before meals and at bedtime. Continue Protonix 40 mg daily, morphine 4 mg IV q.3 hours as needed. Lipase is back to normal at 42. We are going to recheck the lipase tomorrow. We are going to resume the diet. If the lipase is normal, the patient has no symptoms, she may be able to go home. 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 MD JOSE Alvarez/NICOLE /[id number]
[2019-07-10] MEDS: INSULIN LISPRO 100 UNIT/1 ML 3ML VIAL SQ SCH ×3 (07:30→16:30)
--- NOTE | 2019-07-10 07:30 | NUR ---
PATIENT IS IN STABLE CONDITION WITH NO S/S OF RESPIRATORY DISTRESS. NO PAIN VOICED. IV FLUIDS INFUSING. CALL LIGHT IS WITHIN REACH, PATIENT INSTRUCTED TO CALL FOR ASSISTANCE NEEDED.
[2019-07-10] MEDS: PANTOPRAZOLE 40 MG 10ML VIAL IV SCH (08:11)
[2019-07-10 08:34] VITALS: BP 135/60
[2019-07-10 09:01] VITALS: BP 135/60
--- NOTE | 2019-07-10 11:14 | NUR ---
CALL PLACED OUT TO DR. Zain TERAN REGARDING DIET ORDERS AND CLEARANCE FOR DISCHARGE- AWAITING CALLBACK
--- NOTE | 2019-07-10 11:23 | Discharge Summary ---
HOSPITAL COURSE: The patient is a 53-year-old female with past medical history positive for recurrent pancreatitis, hypertension, hyperlipidemia, obesity, diabetes, came here with abdominal pain. She was found to have mild pancreatitis. The patient is doing better. Lipase is back to normal. She is tolerating diet with no abdominal pain. She is going home today. PHYSICAL EXAMINATION: VITAL SIGNS: Blood pressure 121/71, temperature 97.9, heart rate 69 per minute, respiratory rate 18 per minute, oxygen saturation 98%. HEART: Showed regular rhythm. Normal S1, S2 sound. LUNGS: Clear bilaterally. ABDOMEN: Soft. LABORATORY DATA: On the BMP; sodium 134, potassium 3.7, chloride 103, CO2 of 25, BUN 11, creatinine 0.70, glucose 97. On the CBC; white blood count 4.52, hemoglobin 12.1, hematocrit 37.2, platelet count 223,000. PT 12.2, INR 0.86, PTT 23.1. AST is 117, ALT 148, total bilirubin 0.6, alkaline phosphatase 100. FINAL IMPRESSION: 1. Acute recurrent pancreatitis. 2. Hypertension. 3. Hyperlipidemia. 4. Obesity. 5. Diabetes mellitus type 2. 6. Elevated liver function tests. 7. Fatty liver. PLAN OF TREATMENT: The patient will continue Protonix daily. Continue low-fat diet. She is going to follow up with Gastroenterology in a week. MD JOSE Alvarez/NICOLE /[id number]
[2019-07-10 12:30] VITALS: BP 120/57
[2019-07-10 17:04] VITALS: BP 155/80
--- NOTE | 2019-07-10 18:20 | NUR ---
PATIENT DISCHARGE HOME- PATIENT OFF THE UNIT AT 1810 PER AMBULATION ACCOMPANIED BY RN TO THE ER PARKING LOT. PATIENT IN STABLE CONDITION WITH NO S/S OF RESPIRATORY DISTRESS. NO PAIN VOICED. IV REMOVED WITH TIP INTACT. DISCHARGE TEACHING AND INSTRUCTIONS GIVEN TO THE PATIENT. ALL PERSONAL ITEMS TAKEN WITH THE PATIENT.
== END 2019-07-10 18:11 | disposition home or self-care (01) | DRG 440 ==
LOC: ER 11:06 → ERHOLD 16:50 → MED/SURG3 20:13
PROVIDERS: ADMIT Internal Medicine; ATTEND Internal Medicine
DX: K85.90 Acute pancreatitis without necrosis or infection, unspecified (principal); I10 Essential (primary) hypertension; E78.5 Hyperlipidemia, unspecified; E66.9 Obesity, unspecified; Z68.32 Body mass index [BMI] 32.0-32.9, adult; E11.9 Type 2 diabetes mellitus without complications; R94.5 Abnormal results of liver function studies; K76.0 Fatty (change of) liver, not elsewhere classified
CPT/HCPCS: 36415; 74177; 80053; 80061; 81001; 82150; 82550; 82553; 82948; 83690; 83970; 84478; 84484; 85025; 85610; 85730; 86039; 86301; 93005; 99284; J2270; J2405; J7030; Q9967

== ENCOUNTER 2019-10-15 02:45 | Emergency (ER) | payer BC, OTHER ==
[~2019-10-15] VITALS: Ht 154.9 cm; Wt 78.9 kg
[~2019-10-15 02:45] MED LIST changes: +CITALOPRAM HBR20 MG PO; +DIOVAN160 MG PO; +HYDROCHLOROTH12.5 M1; +IMITREX25 MG PO; +PANTOPRAZOLE SO40 MG PO; +TYLENOL WITH C1 EACH PO; +VITAMIN D22000 UNIT; +VITAMIN D250000 UNIT PO; +ZOFRAN8 MG PO
[2019-10-15] MEDS ORDERED: ONDANSETRON HCL INJ 2MG/ML 2ML 2 MG/ML VIAL IV STA (02:48)
[2019-10-15] MEDS ORDERED: MORPHINE SULFATE INJ 4 MG/ML INJ 1ML IV STA (02:48)
[2019-10-15] MEDS ORDERED: SODIUM CHLORIDE 0.9% 1000ML 1,000 ML IV SCH (03:00)
[2019-10-15] MEDS ORDERED: SODIUM CHLORIDE 0.9% 1000ML 1,000 ML IV ONE (03:00)
--- NOTE | 2019-10-15 03:56 | NUR ---
Spoke to Micheal in lab, states that ordered labs will be complete in 10 minutes. SEJAL HUA notified.
[2019-10-15 04:02] LABS: BASOPHILS % 0.4 % (0.0-1.0); EOSINOPHILS # (AUTO) 0.1 (0.0-0.4); EOSINOPHILS % 1.1 % (0.0-6.0); HEMATOCRIT 40.3 % (34.2-44.1); HEMOGLOBIN 13.1 g/dL (12.0-16.0); LYMPHOCYTES # (AUTO) 3.2 (1.0-3.2); LYMPHOCYTES % 41.6 % (18.0-39.1); MEAN CORPUSCULAR HEMOGLOBIN 27.6 pg (28-32); MEAN CORPUSCULAR HGB CONC 32.5 g/dL (31-35); MONOCYTES # (AUTO) 0.4 (0.2-0.8); MONOCYTES % 5.8 % (4.4-11.3); NEUTROPHILS # (AUTO) 3.9 (2.1-6.9); NEUTROPHILS % 50.8 % (38.7-80.0); PLATELET COUNT 244 x10e3/uL (140-360); RED BLOOD COUNT 4.74 x10e6/uL (3.6-5.1); RED CELL DISTRIBUTION WIDTH 13.5 % (11.7-14.4)
[2019-10-15 04:10] LABS: ALANINE AMINOTRANSFERASE 53 IU/L (0-55); ALBUMIN 4.3 g/dL (3.5-5.0); ALBUMIN/GLOBULIN RATIO 1.2 (0.8-2.0); ALKALINE PHOSPHATASE 102 IU/L (40-150); ANION GAP 13.3 mmol/L (8-16); BLOOD UREA NITROGEN 23 mg/dL (7-26); BUN/CREATININE RATIO 27 (6-25); CALCIUM 10.2 mg/dL (8.4-10.2); CARBON DIOXIDE 27 mmol/L (22-29); CHLORIDE 102 mmol/L (98-107); CREATININE, SERUM 0.85 mg/dL (0.57-1.11); EST GLOMERULAR FILTRATION RATE > 60 ML/MIN (60-); GLUCOSE 94 mg/dL (74-118); POTASSIUM 3.3 mmol/L (3.5-5.1); SODIUM 139 mmol/L (136-145)
[2019-10-15 04:11] LABS: AMYLASE 159 U/L (25-125); LIPASE 365 U/L (8-78)
[2019-10-15 04:43] LABS: BILIRUBIN,URINE NEGATIVE (NEGATIVE); CLARITY,URINE CLEAR (CLEAR); COLOR,URINE YELLOW (YELLOW); KETONES,URINE NEGATIVE (NEGATIVE); LEUKOCYTE ESTERASE ,URINE MODERATE (NEGATIVE); NITRITE,URINE NEGATIVE (NEGATIVE); PROTEIN,URINE DIPSTICK NEGATIVE (NEGATIVE); URINE UROBILINOGEN 0.2 mg/dL (0.2 - 1)
[2019-10-15 05:04] LABS: BACTERIA,URINE MANY /HPF; EPITHELIAL CELLS,URINE MANY /LPF; WBC,URINE (MAN) 21-50 /HPF (0-5)
[2019-10-15 05:13] VITALS: BP 118/74
== END 2019-10-15 05:25 | disposition home or self-care (01) ==
LOC: ER 02:45
DX: R10.13 Epigastric pain (principal); R11.0 Nausea; K86.1 Other chronic pancreatitis; N30.91 Cystitis, unspecified with hematuria; I10 Essential (primary) hypertension; E11.9 Type 2 diabetes mellitus without complications; E78.5 Hyperlipidemia, unspecified; F41.9 Anxiety disorder, unspecified; Z85.3 Personal history of malignant neoplasm of breast
CPT/HCPCS: 36415; 80053; 81001; 82150; 83690; 85025; 96374; 96375; 99283; J2270; J2405; J7030

== ENCOUNTER 2021-08-14 00:43 | Emergency (ER) | payer BC ==
[~2021-08-14] VITALS: Ht 154.9 cm; Wt 78.9 kg
[2021-08-14] MEDS ORDERED: MORPHINE SULFATE INJ 4 MG/ML INJ 1ML IV STA ×2 (00:49→02:03)
[2021-08-14] MEDS ORDERED: SODIUM CHLORIDE 0.9% 1000ML 1,000 ML IV STA (00:49)
[2021-08-14] MEDS ORDERED: ONDANSETRON HCL INJ 2MG/ML 2ML 2 MG/ML VIAL IV PRN (01:00)
[2021-08-14 01:02] LABS: BASOPHILS % 0.4 % (0.0-1.0); EOSINOPHILS # (AUTO) 0.1 (0.0-0.4); EOSINOPHILS % 0.7 % (0.0-6.0); HEMATOCRIT 41.9 % (34.2-44.1); HEMOGLOBIN 13.2 g/dL (12.0-16.0); LYMPHOCYTES # (AUTO) 3.9 (1.0-3.2); LYMPHOCYTES % 55.2 % (18.0-39.1); MEAN CORPUSCULAR HEMOGLOBIN 26.8 pg (28-32); MEAN CORPUSCULAR HGB CONC 31.5 g/dL (31-35); MEAN CORPUSCULAR VOLUME 85.2 fL (81-99); MONOCYTES # (AUTO) 0.5 (0.2-0.8); MONOCYTES % 6.5 % (4.4-11.3); NEUTROPHILS # (AUTO) 2.6 (2.1-6.9); NEUTROPHILS % 36.9 % (38.7-80.0); PLATELET COUNT 279 x10e3/uL (140-360); RED BLOOD COUNT 4.92 x10e6/uL (3.6-5.1); RED CELL DISTRIBUTION WIDTH 13.4 % (11.7-14.4)
[2021-08-14 01:23] LABS: ALBUMIN 4.1 g/dL (3.5-5.0); ALBUMIN/GLOBULIN RATIO 1.2 (0.8-2.0); ANION GAP 13.3 mmol/L (8-16); CALCIUM 9.2 mg/dL (8.4-10.2); CREATININE, SERUM 0.82 mg/dL (0.57-1.11); POTASSIUM 3.3 mmol/L (3.5-5.1)
[2021-08-14 01:25] LABS: CLARITY,URINE CLOUDY (CLEAR); COLOR,URINE YELLOW (YELLOW); KETONES,URINE TRACE (NEGATIVE); LEUKOCYTE ESTERASE ,URINE MODERATE (NEGATIVE); NITRITE,URINE NEGATIVE (NEGATIVE); PROTEIN,URINE DIPSTICK NEGATIVE (NEGATIVE); URINE UROBILINOGEN 0.2 mg/dL (0.2 - 1)
[2021-08-14 01:29] LABS: BACTERIA,URINE MODERATE /HPF; EPITHELIAL CELLS,URINE FEW /LPF; WBC,URINE (MAN) 21-50 /HPF (0-5)
[2021-08-14] MEDS ORDERED: CEFTRIAXONE 1 GM VIAL IV ONE (01:30)
[2021-08-14] MEDS ORDERED: CEFTRIAXONE 1 GM VIAL ONE (01:47)
[2021-08-14] MEDS ORDERED: CEFTRIAXONE 1 GM in SODIUM CHLORIDE 0.9% 50ML 50 ML IV ONE (02:00)
[2021-08-14] MEDS ORDERED: KETOROLAC TROMETHAMINE 30 MG/ML VIAL IV STA (02:03)
[2021-08-14] MEDS ORDERED: MORPHINE SULFATE INJ 2 MG/ML SYR ONE (02:16)
[2021-08-14 02:38] VITALS: BP 110/58
[2021-08-14] MEDS ORDERED: CEFDINIR300 MG PO (02:43)
[2021-08-14] MEDS ORDERED: ONDANSETRON ODT4 MG PO (02:43)
[2021-08-14] MEDS ORDERED: ACETAMINOPHEN-1 EAC4 PO (02:45)
== END 2021-08-14 02:52 | disposition home or self-care (01) ==
LOC: ER 00:53
DX: R10.13 Epigastric pain (principal); R11.0 Nausea; N39.0 Urinary tract infection, site not specified; K85.90 Acute pancreatitis without necrosis or infection, unspecified; I10 Essential (primary) hypertension; E78.5 Hyperlipidemia, unspecified; F41.9 Anxiety disorder, unspecified; Z85.3 Personal history of malignant neoplasm of breast
CPT/HCPCS: 36415; 80053; 81001; 83690; 84484; 85025; 87086; 93005; 99283; C9113; J0696; J1885; J2270 ×2; J2405; J7030

== ENCOUNTER 2021-12-10 00:51 | Emergency (ER) | payer BC ==
[~2021-12-10] VITALS: Ht 154.9 cm; Wt 78.9 kg
[~2021-12-10 00:51] MED LIST changes: +ACETAMINOPHEN-1 EAC4 PO; +CEFDINIR300 MG PO; +ONDANSETRON ODT4 MG PO
[2021-12-10] MEDS ORDERED: ONDANSETRON HCL INJ 2MG/ML 2ML 2 MG/ML VIAL IV STA (01:25)
[2021-12-10] MEDS ORDERED: KETOROLAC TROMETHAMINE 30 MG/ML VIAL IV STA (01:25)
[2021-12-10] MEDS ORDERED: SODIUM CHLORIDE 0.9% 1000ML 1,000 ML IV SCH (01:30)
[2021-12-10 01:44] LABS: BASOPHILS % 0.6 % (0.0-1.0); EOSINOPHILS # (AUTO) 0.1 (0.0-0.4); EOSINOPHILS % 0.7 % (0.0-6.0); HEMATOCRIT 41.7 % (34.2-44.1); HEMOGLOBIN 13.3 g/dL (12.0-16.0); LYMPHOCYTES # (AUTO) 2.5 (1.0-3.2); LYMPHOCYTES % 35.4 % (18.0-39.1); MEAN CORPUSCULAR HEMOGLOBIN 27.1 pg (28-32); MEAN CORPUSCULAR HGB CONC 31.9 g/dL (31-35); MEAN CORPUSCULAR VOLUME 84.9 fL (81-99); MONOCYTES # (AUTO) 0.4 (0.2-0.8); MONOCYTES % 5.9 % (4.4-11.3); NEUTROPHILS % 57.3 % (38.7-80.0); PLATELET COUNT 236 x10e3/uL (140-360); RED BLOOD COUNT 4.91 x10e6/uL (3.6-5.1); RED CELL DISTRIBUTION WIDTH 13.4 % (11.7-14.4)
[2021-12-10] MEDS ORDERED: SODIUM CHLORIDE 0.9% 1000ML 1,000 ML ONE (01:44)
[2021-12-10] MEDS ORDERED: KETOROLAC TROMETHAMINE 30 MG/ML VIAL ONE (01:44)
[2021-12-10] MEDS ORDERED: ONDANSETRON HCL INJ 2MG/ML 2ML 2 MG/ML VIAL ONE (01:44)
[2021-12-10 02:01] LABS: ALBUMIN 4.2 g/dL (3.5-5.0); ALBUMIN/GLOBULIN RATIO 1.1 (0.8-2.0); ANION GAP 13.4 mmol/L (8-16); CALCIUM 9.5 mg/dL (8.4-10.2); CREATININE, SERUM 0.83 mg/dL (0.57-1.11); POTASSIUM 3.4 mmol/L (3.5-5.1)
[2021-12-10] MEDS ORDERED: ACETAMINOPHEN-1 EAC4 PO (02:10)
[2021-12-10] MEDS ORDERED: REGLAN10 MG PO (02:10)
[2021-12-10] MEDS ORDERED: Morphine 4mg Syringe 4 MG/ML INJ IV ONE (02:15)
[2021-12-10] MEDS ORDERED: Morphine 4mg Syringe 4 MG/ML INJ ONE (02:22)
== END 2021-12-10 02:40 | disposition home or self-care (01) ==
LOC: FSED 01:02
DX: R11.0 Nausea (principal); K85.90 Acute pancreatitis without necrosis or infection, unspecified; R10.13 Epigastric pain; I10 Essential (primary) hypertension; E78.5 Hyperlipidemia, unspecified; F41.9 Anxiety disorder, unspecified; Z85.3 Personal history of malignant neoplasm of breast
CPT/HCPCS: 36415; 80053; 83690; 85025; 99283; J1885; J2270; J2405; J7030

== ENCOUNTER 2022-03-14 03:44 | Emergency (ER) | payer BC ==
[~2022-03-14] VITALS: Ht 154.9 cm; Wt 66.2 kg
[~2022-03-14 03:44] MED LIST changes: +REGLAN10 MG PO
[2022-03-14] MEDS ORDERED: ONDANSETRON HCL INJ 2MG/ML 2ML 2 MG/ML VIAL IV STA (03:51)
[2022-03-14] MEDS ORDERED: Morphine 4mg Syringe 4 MG/ML INJ IV ONE (04:00)
[2022-03-14] MEDS ORDERED: SODIUM CHLORIDE 0.9% 1000ML 1,000 ML IV ONE (04:00)
[2022-03-14 04:19] LABS: BASOPHILS % 0.6 % (0.0-1.0); EOSINOPHILS # (AUTO) 0.1 (0.0-0.4); EOSINOPHILS % 1.2 % (0.0-6.0); HEMOGLOBIN 13.7 g/dL (12.0-16.0); LYMPHOCYTES # (AUTO) 3.2 (1.0-3.2); LYMPHOCYTES % 49.2 % (18.0-39.1); MEAN CORPUSCULAR HEMOGLOBIN 27.5 pg (28-32); MEAN CORPUSCULAR HGB CONC 32.6 g/dL (31-35); MEAN CORPUSCULAR VOLUME 84.2 fL (81-99); MONOCYTES # (AUTO) 0.4 (0.2-0.8); MONOCYTES % 5.7 % (4.4-11.3); NEUTROPHILS # (AUTO) 2.8 (2.1-6.9); PLATELET COUNT 280 x10e3/uL (140-360); RED BLOOD COUNT 4.99 x10e6/uL (3.6-5.1); RED CELL DISTRIBUTION WIDTH 13.6 % (11.7-14.4)
[2022-03-14 04:30] LABS: AMYLASE 385 U/L (25-125); LIPASE 1062 U/L (8-78)
[2022-03-14 04:32] LABS: ANION GAP 12.5 mmol/L (8-16); CALCIUM 8.9 mg/dL (8.4-10.2); CREATININE, SERUM 0.74 mg/dL (0.57-1.11); POTASSIUM 3.5 mmol/L (3.5-5.1)
[2022-03-14 04:33] LABS: CLARITY,URINE CLEAR (CLEAR); COLOR,URINE YELLOW (YELLOW); KETONES,URINE NEGATIVE (NEGATIVE); LEUKOCYTE ESTERASE ,URINE 1+ (NEGATIVE); NITRITE,URINE NEGATIVE (NEGATIVE); PROTEIN,URINE DIPSTICK NEGATIVE (NEGATIVE); URINE UROBILINOGEN 0.2 mg/dL (0.2 - 1)
[2022-03-14 04:40] LABS: BACTERIA,URINE MODERATE /HPF; EPITHELIAL CELLS,URINE FEW /LPF; RBC,URINE 0-5 /HPF (0-5); RENAL EPITHELIAL CELLS,URINE FEW; TRANSITIONAL EPI CELLS,URINE FEW; WBC,URINE (MAN) >50 /HPF (0-5)
[2022-03-14] MEDS ORDERED: ONDANSETRON ODT4 MG PO (05:00)
[2022-03-14] MEDS ORDERED: CEFDINIR300 MG PO (05:00)
[2022-03-14] MEDS ORDERED: ACETAMINOPHEN-1 EAC4 PO (05:00)
== END 2022-03-14 05:22 | disposition home or self-care (01) ==
LOC: ER 03:49
DX: R10.10 Upper abdominal pain, unspecified (principal); N39.0 Urinary tract infection, site not specified; K85.90 Acute pancreatitis without necrosis or infection, unspecified; R11.0 Nausea; I10 Essential (primary) hypertension; E78.5 Hyperlipidemia, unspecified; F41.9 Anxiety disorder, unspecified; Z85.3 Personal history of malignant neoplasm of breast
CPT/HCPCS: 36415; 80053; 81001; 82150; 83690; 85025; 99284; C9113; J2270; J2405; J7030